=== PATIENT | male | born 1945 | race Caucasian/White ===

== ENCOUNTER 2016-08-02 04:52 | Observation (INO) ==
[2016-08-02] MEDS ORDERED: *HR* Labetalol 20 MG/4 ML SYRINGE IVP ONE (05:07)
--- NOTE | 2016-08-02 05:51 | Emergency Department Note ---
Disposition Clinical Impression: Chest pain, rule out acute myocardial infarction Hypertension Qualifiers: Hypertension type: unspecified secondary hypertension Qualified Code(s): I15.9 - Secondary hypertension, unspecified Disposition: Admitted As Inpatient Condition: Good Referrals: Mack Briones MD [Primary Care Provider] - Forms: ED Satisfaction Letter Time of Disposition: 06:35 Chest Pain HPI - General Chief Complaint: ED Chest Pain Stated Complaint: High Bloodpressure,chest pain, sharlene Time Seen by Provider: 08/02/16 05:46 Source: patient Limitations: no limitations Vital Signs Reviewed: Yes Nursing Notes Reviewed: Yes - History of Present Illness HPI Narrative: 70 year old male with HX of CAD and stent placemtn x1 in 2008. Lanet states that he woke up this morning at 0430 and chest midsternal chest pressure without radiation. Patient states that he has a HX of HTN and high cholesterol. He took his blood pressure and it was 180/100 in addition he began to feel increeasingly dyspneic at rest and decided to come to the ED for further evaluation. Denies diaphoresis, nausea, vomitting. He states he has a 4.2cm abdominal aneurysm however he is not experienecing abdominal pain. Lanet states his shortness of breath started when he woke up this morning after the chest pressure started. Blayne states that he follows with [facility] ad that he most recently had a stress test per Dr. Hopkins which came back normal and stable. He was trying to convince the illustrator set to have a cardiac cath but they are still doing prelim testing before they go to that next step. he is on multiple medications for blood pressure problems. Severity scale (1-10): 5 - Related Data Home Medications Medication Instructions Recorded Confirmed Aspirin Enteric Coated [Aspirin EC] 81 mg PO QAM 01/01/15 03/09/16 Doxazosin [Cardura] 8 mg PO QAM 01/01/15 03/09/16 Metoprolol Succinate 100 mg PO QPM 03/09/16 03/09/16 Ubidecarenone/Vit E Acetate [Co 1 each PO QAM 03/09/16 03/09/16 Q-10 100 mg Softgel] Previous Rx's Medication Instructions Recorded Atorvastatin [Lipitor] 40 mg PO HS #30 tablet 03/10/16 Chlorthalidone 25 mg PO DAILY #30 tablet 03/10/16 Lisinopril [Zestril] 40 mg PO QPM #30 tablet 03/10/16 Amlodipine [Norvasc] 5 mg PO DAILY #14 tablet 06/20/16 Allergies Allergy/AdvReac Type Severity Reaction Status Date / Time losartan Allergy See Verified 08/02/16 04:55 Comments amlodipine [From Norvasc] AdvReac Palpitation Verified 08/02/16 04:56 s most pain medication AdvReac Dizziness Uncoded 01/01/15 10:20 water pills AdvReac See Uncoded 01/28/16 18:11 Comments Constitutional: Denies: fever, chills, weakness, weight change Eyes: Denies: eye pain, eye discharge, vision change ENT ED: Denies: ear pain, throat pain, dental pain, hearing loss, epistaxis, congestion, dysphagia Cardiovascular: Reports: chest pain. Denies: palpitations, dyspnea on exertion , edema, syncope Respiratory: Reports: dyspnea. Denies: cough, wheezes, hemoptysis, stridor Gastrointestinal: Denies: abdominal pain, nausea, vomiting, diarrhea, constipation, hematemesis, melena, hematochezia Genitourinary: Denies: urgency, dysuria, frequency, hematuria Musculoskeletal: Denies: back pain, neck pain, arthralgia, myalgia Integumentary: Denies: rash, abrasion, lesions Neurological: Denies: headache, weakness, numbness, paresthesias, confusion, abnormal gait, vertigo Psychiatric: Denies: anxiety, depression, suicidal thoughts, homicidal thoughts , auditory hallucinations, visual hallucinations Endocrine: Denies: fatigue Hematological/Lymphatic: Denies: easy bleeding, easy bruising Allergic/Immunologic: Denies: facial swelling, urticaria Chest Pain PMH - Past Medical History Medical history: Reports: aortic aneurysm, coronary artery disease, hyperlipidemia, hypertension, myocardial infarction, thyroid disease, other Surgical history: Reports: angioplasty/stent (2008), herniorrhaphy, other ( partial left nephrectomy 08/2014) Psychiatric history: Reports: no psych history - Social History Smoking Status: Former smoker Alcohol use: Reports: none Drug use: Reports: none Physical Exam - General Limitations: no limitations General appearance: alert, in no apparent distress - Head Head exam: atraumatic, normocephalic, normal inspection - Eye Eye exam: Present: normal appearance, PERRL, EOMI - Expanded Eye Exam Pupils: Left: reactive - ENT ENT exam: normal exam, normal oropharynx, mucous membranes moist - Expanded ENT Exam External ear exam: Present: normal external inspection Mouth exam: Present: normal external inspection Teeth exam: Present: normal inspection Throat exam: Present: normal inspection - Neck Neck exam: Present: normal inspection, full ROM, trachea midline - Chest Chest inspection: Present: normal inspection, symmetric chest wall rise - Respiratory Respiratory exam: Present: normal lung sounds bilaterally - Cardiovascular Cardiovascular exam: Present: regular rate, normal rhythm, normal heart sounds - Abdominal Exam Abdominal exam: Present: soft, Non-Tender. Absent: tenderness, distention, guarding, rebound, rigidity - Extremities Exam Extremities exam: Present: normal inspection, full ROM. Absent: tenderness, pedal edema - Expanded Upper Extremity Exam Shoulder exam: Present: normal inspection, full ROM Arm exam: Present: normal inspection, full ROM Elbow exam: Present: normal inspection, full ROM Forearm/Wrist exam: Present: normal inspection, full ROM Hand exam: Present: normal inspection, full ROM Vascular exam: Normal: capillary refill, radial pulse - Expanded Lower Extremity Exam Hip/Pelvis exam: Present: normal inspection, full ROM Upper leg exam: Present: normal inspection, full ROM Knee exam: Present: normal inspection, full ROM Lower leg exam: Present: normal inspection, full ROM Ankle exam: Present: normal inspection, full ROM Foot/toe exam: Present: normal inspection, full ROM Neurovascular/Tendon exam: Absent: motor deficit, sensory deficit, tendon deficit - Back Exam Back exam: Present: normal inspection, full ROM. Absent: tenderness - Neurological Exam Neurological exam: Present: alert, oriented X3 - Expanded Neurological Exam Patient oriented to: Present: person, place, time Coma Scale Eye Opening: Spontaneous Coma Scale Motor Response: Obeys Commands Coma Scale Verbal Response: Oriented Coma Scale Total: 15 - Psychiatric Psychiatric exam: Present: normal affect, normal mood - Skin Skin exam: Present: warm, dry, intact, normal color Course Course Narrative: we will do a chest pain workup on patient and likely admit to medicine fo CP r/ o ACS. - Reevaluation(s) Reevaluation #1: updatd patient on results. WE will consult cards and then admit to medicine Time: 06:33 - Consultations Consultation #1: discussed case with Dr. Cleaning and she agrees patiet needs to be admitted for obs and they can consult cards to discuss need for cardiac cath. Time: 06:34 Consultation #2: discussed case with Dr Kelley and he accepts patint for admission. Time: 06:48 Vital Signs Temperature 98.0 F 08/02/16 04:53 Pulse Rate 79 08/02/16 04:53 Respiratory Rate 19 08/02/16 04:53 Blood Pressure 197/118 08/02/16 04:53 O2 Sat by Pulse Oximetry 96 08/02/16 04:53 Temperature 98.0 F 08/02/16 04:53 Pulse Rate 68 08/02/16 06:11 Respiratory Rate 18 08/02/16 06:11 Blood Pressure 174/101 08/02/16 06:11 O2 Sat by Pulse Oximetry 94 08/02/16 06:11 Oxygen Delivery Oxygen Delivery Room Air Chest Pain - Lab Data Result diagrams: 08/02/16 05:49 08/02/16 05:49 Lab Results 08/02/16 08/02/16 08/02/16 Range/Units 05:24 05:24 05:49 WBC (4.3-11.1) K/mcL RBC (4.19-5.50) M/mcL Hgb (12.9-16.9) g/dL Hct (37.5-50.1) % MCV (83.0-100.0) fL MCH (28.0-33.3) pg MCHC (31.6-35.5) g/dL RDW (11.5-14.5) % Plt Count (140-400) K/mcL MPV (9.4-12.4) fL Immature Gran % (0-4) % Seg Neutrophils % % Lymphocytes % % Monocytes % % Eosinophils % % Basophils % % Neutrophils # (1.6-8.9) K/mcL Lymphocytes # (0.6-4.6) K/mcL Monocytes # (0.0-1.3) K/mcL Eosinophils # (0.0-0.6) K/mcL Basophils # (0.0-0.2) K/mcL Immature Plt Fraction (1.1-6.1) % PT 10.7 (9.4-12.1) Seconds INR 1.0 APTT 28.9 (26.0-36.0) Seconds Sodium (136-145) mEq/L Potassium (3.5-4.5) mEq/L Chloride (98-109) mEq/L Carbon Dioxide (19-29) mEq/L BUN (8-26) mg/dL Creatinine (0.72-1.25) mg/dL Est GFR ( Amer) (> 60) Est GFR (Non-Af Amer) (> 60) BUN/Creatinine Ratio (6-26) Glucose (70-99) mg/dL Calculated Osmolality (280-300) Calcium (8.6-10.8) mg/dL Total Bilirubin (0.2-1.2) mg/dL Direct Bilirubin (0.0-0.5) mg/dL Indirect Bilirubin (0.0-1.2) mg/dL AST (5-34) Units/L ALT (0-55) Units/L Alkaline Phosphatase (38-126) Units/L Troponin I 0.00 (0-0.03) ng/mL B-Natriuretic Peptide (0-100) pg/mL Serum Total Protein (6.0-8.3) g/dL Albumin (3.5-5.0) g/dL Globulin (2.4-3.5) g/dL Albumin/Globulin Ratio (1.1-2.2) Lipase (8-78) Units/L Specimen Rejected Clotted 08/02/16 08/02/16 08/02/16 Range/Units 05:49 05:49 05:49 WBC 6.5 (4.3-11.1) K/mcL RBC 4.92 (4.19-5.50) M/mcL Hgb 14.8 (12.9-16.9) g/dL Hct 44.3 (37.5-50.1) % MCV 90.0 (83.0-100.0) fL MCH 30.1 (28.0-33.3) pg MCHC 33.4 (31.6-35.5) g/dL RDW 12.7 (11.5-14.5) % Plt Count 172 (140-400) K/mcL MPV 9.5 (9.4-12.4) fL Immature Gran % 0.2 (0-4) % Seg Neutrophils % 68.5 % Lymphocytes % 16.6 % Monocytes % 8.8 % Eosinophils % 5.4 % Basophils % 0.5 % Neutrophils # 4.5 (1.6-8.9) K/mcL Lymphocytes # 1.1 (0.6-4.6) K/mcL Monocytes # 0.6 (0.0-1.3) K/mcL Eosinophils # 0.4 (0.0-0.6) K/mcL Basophils # 0.0 (0.0-0.2) K/mcL Immature Plt Fraction 3.4 (1.1-6.1) % PT (9.4-12.1) Seconds INR APTT (26.0-36.0) Seconds Sodium 140 (136-145) mEq/L Potassium 4.1 (3.5-4.5) mEq/L Chloride 105 (98-109) mEq/L Carbon Dioxide 27 (19-29) mEq/L BUN 15 (8-26) mg/dL Creatinine 1.16 (0.72-1.25) mg/dL Est GFR ( Amer) > 60 (> 60) Est GFR (Non-Af Amer) > 60 (> 60) BUN/Creatinine Ratio 13 (6-26) Glucose 127 H (70-99) mg/dL Calculated Osmolality 292 (280-300) Calcium 9.0 (8.6-10.8) mg/dL Total Bilirubin 1.0 (0.2-1.2) mg/dL Direct Bilirubin 0.2 (0.0-0.5) mg/dL Indirect Bilirubin 0.8 (0.0-1.2) mg/dL AST 11 (5-34) Units/L ALT 12 (0-55) Units/L Alkaline Phosphatase 49 (38-126) Units/L Troponin I (0-0.03) ng/mL B-Natriuretic Peptide 57 (0-100) pg/mL Serum Total Protein 6.8 (6.0-8.3) g/dL Albumin 3.6 (3.5-5.0) g/dL Globulin 3.2 (2.4-3.5) g/dL Albumin/Globulin Ratio 1.1 (1.1-2.2) Lipase 15 (8-78) Units/L Specimen Rejected Attestation Statement - Attestation Attestation: I performed a history and physical examination of the patient and discussed their management with the resident. I reviewed the residents note and agree with the documented findings and plan of care. This 70-year-old male presented with chest pain and does have a previous history of coronary artery disease. No recent catheter. His blood pressure was markedly elevated. First troponin is negative. The case was discussed with cardiology and they feel that the patient should be admitted to be ruled out. My resident has arranged hospitalist admission.
[2016-08-02] MEDS ORDERED: Aspirin 81 MG TAB.CHEW PO ONE (05:52)
[2016-08-02 05:57] LABS: Basophils % 0.5 %; Eosinophils # 0.4 K/mcL (0.0-0.6); Eosinophils % 5.4 %; Hematocrit 44.3 % (37.5-50.1); Hemoglobin 14.8 g/dL (12.9-16.9); Immature Granulocytes % 0.2 % (0-4); Immature Platelets 3.4 % (1.1-6.1); Lymphocytes # 1.1 K/mcL (0.6-4.6); Lymphocytes % 16.6 %; Mean Corpuscular HGB Conc 33.4 g/dL (31.6-35.5); Mean Corpuscular Hemoglobin 30.1 pg (28.0-33.3); Mean Platelet Volume 9.5 fL (9.4-12.4); Monocytes # 0.6 K/mcL (0.0-1.3); Monocytes % 8.8 %; Neutrophils # 4.5 K/mcL (1.6-8.9); Platelet Count 172 K/mcL (140-400); Red Blood Count 4.92 M/mcL (4.19-5.50); Red Cell Distribution Width 12.7 % (11.5-14.5); Segmented Neutrophils % 68.5 %
[2016-08-02 06:10] LABS: Alanine Aminotransferase 12 Units/L (0-55); Albumin 3.6 g/dL (3.5-5.0); Albumin/Globulin Ratio 1.1 (1.1-2.2); Alkaline Phosphatase 49 Units/L (38-126); Aspartate Amino Transferase 11 Units/L (5-34); BUN/Creatinine Ratio 13 (6-26); Bilirubin,Direct 0.2 mg/dL (0.0-0.5); Bilirubin,Indirect 0.8 mg/dL (0.0-1.2); Blood Urea Nitrogen 15 mg/dL (8-26); Carbon Dioxide 27 mEq/L (19-29); Chloride 105 mEq/L (98-109); Globulin 3.2 g/dL (2.4-3.5); Glucose 127 mg/dL (70-99); Lipase 15 Units/L (8-78); Osmolality,Calculated 292 (280-300); Potassium 4.1 mEq/L (3.5-4.5); Sodium 140 mEq/L (136-145); Total Protein 6.8 g/dL (6.0-8.3); eGFR For African Americans > 60 (> 60); eGFR For Non-African Americans > 60 (> 60)
[2016-08-02 06:13] LABS: Prothrombin Time 10.7 Seconds (9.4-12.1)
[2016-08-02 06:16] LABS: Activated Partial Thrombo Time 28.9 Seconds (26.0-36.0)
[2016-08-02] MEDS ORDERED: Naloxone 0.4 MG/ML INJ IVP PRN (07:28)
[2016-08-02] MEDS ORDERED: Acetaminophen 325 MG TABLET PO PRN (07:28)
--- NOTE | 2016-08-02 08:27 | Internal Med History&Physical ---
Date of Encounter: 08/02/16 Time of Encounter: 07:50 Assessment and Plan (1) Chest pain Current visit: Yes Status: Acute Acute chest pain. Observation. Trend troponins. Telemetry. Cardiology for further recommendations. Keep nothing by mouth for now. Check lipid profile and A1c. Continue aspirin. Patient is allergic to statins. Qualifiers: Chest pain type: precordial pain Qualified Code(s): R07.2 - Precordial pain (2) HTN (hypertension) Current visit: Yes Status: Chronic Uncontrolled blood pressure. Improving now. Will monitor blood pressure and adjust medications accordingly. Qualifiers: Hypertension type: essential hypertension Qualified Code(s): I10 - Essential (primary) hypertension (3) HLD (hyperlipidemia) Current visit: No Status: Chronic Check lipid profile. Patient is currently not on any statins due to adverse reaction. Qualifiers: Hyperlipidemia type: pure hypercholesterolemia Qualified Code(s): E78.00 - Pure hypercholesterolemia, unspecified; E78.0 - Pure hypercholesterolemia (4) Accelerated essential hypertension Current visit: Yes Status: Acute Blood pressure elevated on presentation. This is improving. We will monitor blood pressure. Use intravenous hydralazine as needed for systolic blood pressure persistently greater than 160. (5) CAD (coronary artery disease) Current visit: No Status: Chronic Continue aspirin, beta brandon and JESSICA inhibitor Qualifiers: Coronary Disease-Associated Artery/Lesion type: [place] artery [place] vs. transplanted heart: [place]jon heart Associated angina: with other forms of angina Qualified Code(s): I25.118 - Atherosclerotic heart disease of [place] coronary artery with other forms of angina pectoris Internal Medicine - H&P: HPI Chief complaint: Chest discomfort and high blood pressure Admitted From: Emergency Dept Plans for Post Hospital Care: Home History of present illness: Mr. Vail is a 70 year old male patient with a history of coronary artery disease, hyperlipidemia, prior non-ST elevation DE and stent, essential hypertension who presented to the ER with complaints of chest discomfort. This has been going on for past several weeks intermittently. He describes the pain as almost like a feeling of indigestion that occurs whenever the patient's blood pressure is high especially the diastolic. He is seeing cardiology as outpatient for this and recently had workup done with a stress test which apparently was negative. He was discussing further options with the assistant vice president including cardiac catheterization. Patient also has a history of abdominal aortic aneurysm. He denies any dizziness lightheadedness palpitations at this time. Denies any abdominal pain. She does get shortness of breath when he has episodes of chest pain. Currently his chest pain has improved. It has no relation to activity. Pain was 5 out of 10 in severity at its worst. Past Med Surg Social Fam HX - Past Medical History Attestation: Yes The following information was validated with the patient. Source: patient Medical history: aortic aneurysm, coronary artery disease, hyperlipidemia, hypertension, myocardial infarction, thyroid disease Psychiatric history: no psych history - Past Surgical History Surgical History: angioplasty/stent (2008), herniorrhaphy, other (partial left nephrectomy 08/2014) - Social History Smoking Status: Former smoker Smokeless Tobacco Status: No Alcohol use: none Drug use: none - Family History Son Living Status: Mother Living Status: Sister Living Status: Internal Medicine - H&P: Meds Aspirin Enteric Coated [Aspirin EC] 81 mg PO QAM 01/01/15 [History] Doxazosin [Cardura] 8 mg PO QAM 01/01/15 [History] Metoprolol Succinate 100 mg PO QPM 03/09/16 [History] Ubidecarenone/Vit E Acetate [Co Q-10 100 mg Softgel] 100 mg PO QAM 03/09/16 [ History] Lisinopril [Zestril] 40 mg PO QPM #30 tablet 03/10/16 [Rx] Allergies losartan Allergy (Verified 08/02/16 04:55) See Comments amlodipine [From Norvasc] Adverse Reaction (Verified 08/02/16 04:56) Palpitations Abxdblu-Hng-Ycd Reductase Inhibitor [Statins] Adverse Reaction (Verified 07:20) Muscle Pain most pain medication Adverse Reaction (Uncoded 01/01/15 10:20) Dizziness water pills Adverse Reaction (Uncoded 01/28/16 18:11) See Comments All Systems PM: A 10-system review of systems was performed and is negative for pertinent findings except as documented above in the HPI. - Constitutional Constitutional: no chills, no fever(s), no night sweats - EENT Eyes: no change in vision, no discharge, no pain, no photophobia Ears: no ear discharge, no ear pain, no tinnitus Nose, mouth and throat: no dysphagia, no nasal discharge, no neck pain, no sore throat - Cardiovascular Cardiovascular ROS IM: chest pain, no diaphoresis, no dyspnea, no lightheadedness, no palpitations, no syncope - Respiratory Respiratory: dyspnea, no cough, no wheezing, no excessive phlegm production - Gastrointestinal Gastrointestinal: no abdominal pain, no diarrhea, no hematemesis, no hematochezia, no melena, no nausea, no vomiting - Musculoskeletal Musculoskeletal ROS IM: no numbness, no tingling - Integumentary Integumentary IM: no rash, no unusual bruising - Neurological Neurological ROS: no confusion, no convulsions, no focal weakness, no numbness, no tingling, no tremor(s) - Hematologic/Lymphatic Hematologic/Lymphatic: no easy bruising - Constitutional Vitals: Temp Pulse Resp BP Pulse Ox 98.7 F 62 14 162/87 95 08/02/16 07:53 08/02/16 07:53 08/02/16 07:53 08/02/16 07:53 08/02/16 07:53 General appearance: Present: cooperative, A&O X 3, answers questions appropriately - Neck Neck exam general surgery: Present: supple, trachea midline. Absent: lymphadenopathy - Respiratory Respiratory exam: Present: CTAB. Absent: accessory muscle use, rales, rhonchi, wheezes - Cardiovascular Cardiovascular exam: Present: RRR, +S1, +S2. Absent: diastolic murmur, gallop, rubs, systolic murmur - GI/Abdominal GI/Abdominal exam: Present: normal bowel sounds, soft, no peritoneal signs. Absent: distended, tenderness - Extremities Exam Extremities exam: Present: warm, radial pulses palpable and symetrical. Absent : calf tenderness, cyanotic, pedal edema - Neurological Exam Neurological exam: Present: alert, CN II-XII intact, oriented X3, no focal deficits. Absent: facial droop, speech deficit - Skin Skin exam: Present: dry, intact Internal Med - H&P Results - Labs CBC & Chem 7: 08/02/16 05:49 08/02/16 05:49 - EKG Data -: EKG Interpreted by Myself EKG shows normal: sinus rhythm - EKG Data EKG comments: 08/02/16 08:29 With old inferior wall Q waves - Impressions Impressions Chest X-Ray 04/27/17 05:07 IMPRESSION: No acute disease D/ / Tylor Sarkar MD / Tylor Sarkar MD Interpreting Provider: Tylor Sarkar MD - Attending Attestation This document has been at least partially created by [employer] recognition technology by Dr. Burnham. Errors in grammar, wording or other phrases may exist. If errors are found after the documentation is signed, they will be addressed individually in the addendum section of this document when appropriate.
[2016-08-02 10:33] LABS: Bilirubin,Urine Negative (Negative); Blood,Urine Negative (Negative); Clarity,Urine Clear (Clear); Color,Urine Yellow (Yellow); Glucose,Urine (UA) Normal (Normal); Ketones,Urine Negative (Negative); Leukocyte Esterase,Urine Negative (Negative); Nitrite,Urine Negative (Negative); PH,Urine 6.5 pH Units (5.0-8.0); Protein,Urine Negative (Neg-Trace); Specific Gravity,Urine 1.026 (1.010-1.025); Urobilinogen,Urine Normal (Normal)
[2016-08-02] MEDS: Aspirin Enteric Coated 81 MG Tablet PO SCH (10:54)
--- NOTE | 2016-08-02 11:12 | Cardiology Consult Note ---
Date of Encounter: 08/02/16 Time of Encounter: 11:08 Assessment and Plan (1) Chest pain Current Visit: Yes Status: Acute New onset of chest pain on waking this AM EKG does not show acute changes Initial troponin is 0.00 Labwork relatively unremarkable CXR normal History of CAD with stent placed in 2008 Nuclear stress in 06/2016 showed fixed defect in inferior/inferolateral wall. Echo on 07/13/16 shows EF of 65% without significant other findings Consider [facility] today Qualifiers: Chest pain type: precordial pain Qualified Code(s): R07.2 - Precordial pain (2) HTN (hypertension) Current Visit: Yes Status: Chronic Variable blood pressures At home takes metoprolol succinate ER 100mg QD, doxazosin 8mg QD, and lisinipril 40 QD Has hydralazine IV ordered for BP control in addition to home meds Qualifiers: Hypertension type: essential hypertension Qualified Code(s): I10 - Essential (primary) hypertension (3) CAD (coronary artery disease) Current Visit: No Status: Chronic Consider left heart cath today Known history of CAD Qualifiers: Coronary Disease-Associated Artery/Lesion type: [place] artery [place] vs. transplanted heart: [place] heart Associated angina: with other forms of angina Qualified Code(s): I25.118 - Atherosclerotic heart disease of [place] coronary artery with other forms of angina pectoris Discussion w patient/family: The assessment and plan as outlined above was discussed with the patient and/or family members who expressed understanding and agreement. All questions were answered. Thank you for involving us in the care of your patient. Please call with any questions. History of Present Illness Consult date: 08/02/16 Consult reason: Chest pain with HTN Chief complaint: Chest pain with prior CAD History of present illness: Mr. Vail is a 70 year old male who presented to the ER this AM at 04:30 due to midsternal CP and dyspnea. He has felt this in the past when his BP becomes elevated. He says when his diastolic is above 100 he begins to get CP. Was recently seen in the cardiology clinic by Dr Richardson (06/2016) due to HTN. He had a nuclear stress in 06/2016 which showed a fixed perfusion defection in the inferior/inferolateral portion. Echo on 07/13/16 showed EF of 65% and no change from prior echos. BP in the ER was 197/118 and his chest pain improved after his BP decreased. Prior cath in 2008 with 1 stent placed. Also hx of AAA and no complaint of abdominal pain or LE symptoms. Adverse reaction to statins in the past with myalgias. 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 Former smoker but quit >10 years ago. Past Med Surg Social Fam HX - Past Medical History Medical history: aortic aneurysm, coronary artery disease, hyperlipidemia, hypertension, myocardial infarction, thyroid disease Psychiatric history: no psych history - Past Surgical History Surgical History: angioplasty/stent, herniorrhaphy, other - Social History Smoking Status: Former smoker Smokeless Tobacco Status: No Alcohol use: none Drug use: none - Family History Son Living Status: Mother Living Status: Sister Living Status: Medications and Allergies Aspirin Enteric Coated [Aspirin EC] 81 mg PO QAM 01/01/15 [History] Doxazosin [Cardura] 8 mg PO QAM 01/01/15 [History] Metoprolol Succinate 100 mg PO QPM 03/09/16 [History] Ubidecarenone/Vit E Acetate [Co Q-10 100 mg Softgel] 100 mg PO QAM 03/09/16 [ History] Lisinopril [Zestril] 40 mg PO QPM #30 tablet 03/10/16 [Rx] Allergies losartan Allergy (Verified 08/02/16 04:55) See Comments amlodipine [From Norvasc] Adverse Reaction (Verified 08/02/16 04:56) Palpitations Tamcwgt-Tus-[place]i Reductase Inhibitor [Statins] Adverse Reaction (Verified 07:20) Muscle Pain most pain medication Adverse Reaction (Uncoded 01/01/15 10:20) Dizziness water pills Adverse Reaction (Uncoded 01/28/16 18:11) See Comments All Systems Review: A 10-system review of systems was performed and is negative for pertinent findings except as documented above in the HPI. - Constitutional Constitutional: no fever(s) - EENT Eyes: no loss of vision - Cardiovascular Cardiovascular: chest pain at rest, dyspnea at rest, no irregular heart rhythm, no palpitations - Respiratory Respiratory: dyspnea, no cough - Musculoskeletal Musculoskeletal: back pain - Integumentary Integumentary: no rash Physical Examination Vital Signs, Last 4 Hours Temp Pulse Resp BP Pulse Ox 08/02/16 07:53 98.7 F 62 14 162/87 95 08/02/16 07:29 14 146/91 General: Conversant HEENT: Atraumatic Neck: No JVD Cardiac: Reg Rate and Rhythm, Normal S1 and S2 Lungs: Normal Breath Sounds Neuro: Alert and responsive Abdomen: Soft Skin: No rashes noted on visualized skin Extremities: No Cyanosis, No Edema, Normal Pulses Results 08/02/16 05:49 08/02/16 05:49 Consult Discharge Plan - Plan Referrals: Mack Briones MD [Primary Care Provider] -
[2016-08-02] MEDS: hydrALAZINE 25 MG TABLET PO SCH (15:59)
--- NOTE | 2016-08-02 16:06 | Pre-Sedation Evaluation ---
Pre-sedation evaluation - Pre-sedation checklist Date of procedure: 08/02/16 Procedure: [facility] Recent Vitals: Last Vital Signs Temp 98.0 F 08/02/16 15:36 Pulse 94 08/02/16 15:36 Resp 16 08/02/16 15:36 BP 172/95 08/02/16 15:36 Pulse Ox 94 08/02/16 15:36 H&P (including ROS) documented in medical record: Yes Previous reaction to sedatives/anesthetics: No Dietary Status: NPO after Midnight Airway Assessment: Patient can open mouth completely, TMJ function normal ASA Classification *see protocol: CLASS II-Mild systemic disease Plan of Care: Pt appropriate candidate for procedure/moderate/conscious sedation , Risks/benefits of procedure/sedation discussed w/ patient/family
[2016-08-02] MEDS ORDERED: Heparin 1,000 UNITS/500 mL NS 500 ML ONE (16:14)
[2016-08-02] MEDS ORDERED: 0.9 % Sodium Chloride 1,000 ML ONE ×2 (16:14→17:05)
[2016-08-02] MEDS ORDERED: *HR* Heparin 10,000 UNIT/10 ML VIAL ONE (16:15)
[2016-08-02] MEDS ORDERED: Nitroglycerin 1,000 MCG/10 ML VIAL IV ONE (16:16)
[2016-08-02] MEDS ORDERED: Verapamil 5 MG/2 ML VIAL ONE (16:16)
[2016-08-02] MEDS ORDERED: *HR* Midazolam HCl 5 MG/5 ML VIAL IVP ONE (17:00)
[2016-08-02] MEDS ORDERED: *HR* FentaNYL (PF) 100 MCG/2 ML VIAL ONE (17:00)
[2016-08-02] MEDS ORDERED: Metoprolol XL (24 HR) Succ 50 MG TAB.ER.24H PO SCH (18:00)
[2016-08-02] MEDS ORDERED: Lisinopril 20 MG TABLET PO SCH (18:00)
--- NOTE | 2016-08-02 18:20 | Invasive Diagnostic Lab Proc ---
Name: Schuyler Vail Date of Study: 08/02/2016 Date: 1945 Ht: 68.1in Medical Record#: [id number] Age: 70 Wt: 266.76lb Gender: Male BSA: 2.31 Order #: [id number] BMI: 40.43 Physicians Procedure Physician: Caesar Villalobos MD, [facility] Referring MD: Referring MD: Staff Name Position Time In [facility], [facility] RT (R) Monitor 05:12 PM Zoran Maria RN Scrub 05:12 PM Paris Ramesh RN Garageman 05:12 PM Anny Benitez RN Garageman 05:12 PM Indications Indication Unstable Angina Procedures Performed Procedure L HRT ARTERY/VENTRICLE ANGIO Pre-Procedure Checklist Informed consent is complete signed and on chart. H\\T\\P is on chart. ID band is on and ID verified with patient. Patient NPO for procedure The procedure was described for the patient and questions were answered. Blood Pressure: 153/84 ECG is on chart. Rhythm: NSR Plan of Care Patient will tolerate the procedure without complications. Adequate level of comfort will be maintained. Hemodynamics will remain stable Patient will recover from procedure without complications. Respiratory function will be maintained. Cardiac rhythm will remain stable. Patient temperature will be maintained. Patient and/or family have verbalized understanding of the procedure. Patient Education Intravenous Access Time IV Size Location DC'd Fluid/Drip Rate Units RN 20g 1 /" Patent On Arrival Rt Antecubital 0.9NaCl 20 ml/hr Paris Ramesh RN Allergies amlodipine Xjqqgyr-Sav-Qbn Reductase Inhibitor JESSICA Inhibitor lisinopril losartan Vital Signs Time BP (mmHg) HR (bpm) O2 Sat. RR (bpm) LOC 181 / 98 61 94 % 16 5 = Fully awake and oriented or at pre-proc level 05:14 PM / % 5 = Fully awake and oriented or at pre-proc level 05:03 PM 179 / 88 73 99 % 7 05:08 PM 153 / 84 73 98 % 16 05:12 PM 141 / 81 76 97 % 26 05:17 PM 152 / 91 75 97 % 18 05:22 PM 161 / 88 67 98 % 19 05:27 PM 116 / 60 80 95 % 10 05:32 PM 127 / 67 73 96 % 23 05:37 PM 134 / 70 78 97 % 18 05:43 PM 152 / 80 69 98 % 17 05:47 PM 140 / 79 68 98 % 21 05:52 PM 135 / 68 69 98 % 17 05:57 PM 144 / 76 73 97 % 17 Procedural Medications Time Medication Dose Units Method Given By 05:14 PM Oxygen 2 L/min nasal cannula Prais Ramesh RN 05:14 PM Versed 3 mg Intravenous Paris Ramesh RN 05:14 PM Fentanyl 50 mcg Intravenous Paris Ramesh RN 05:22 PM Versed 1 mg Intravenous Anny Benitez RN 05:22 PM Fentanyl 25 mcg Intravenous Anny Benitez RN 05:23 PM Lidocaine 2% 0.5 ml Subcutaneous Caesar Villalobos MD, FAC 05:24 PM Heparin 4000 units Nitroglycerin 200 mcg Verapamil 2.5 mg Intraarterial Caesar Villalobos MD, FACC 05:44 PM Lidocaine 2% 20 ml Subcutaneous Caesar Villalobos MD, FACC 06:08 PM Hydralazine 10 mg Intravenous Paris Ramesh RN ASA Classification: CLASS II- Mild systemic disease (i.e. well-controlled diabetes, hypertension, asthma, cigarette smoking) Rosio Score Preprocedure Postprocedure Activity 2- Moves 4 extremities sustained head lift Activity 2- Moves 4 extremities sustained head lift Circulation 2- SBP +/= 20 points of pre-anesthetic level Circulation 2- SBP +/= 20 points of pre-anesthetic level Consciousness 2- Awake and alert oriented x 3 Consciousness 2- Awake and alert oriented x 3 O2 Saturation 2- Able to maintain O2 satruation of 92% on room air O2 Saturation 2- Able to maintain O2 satruation of 92% on room air Respiratory 2- Able to deep breathe and cough well Respiratory 2- Able to deep breathe and cough well Total Score 10 Total Score 10 Contrast Agent: Isovue Diagnostic Contrast: 95 ml Total Contrast: 95 ml Fluoro Dose: 893 mGy Procedure Log Time Note Enter By 04:45 PM CathStat 05:01 PM Vitals capture started with the following parameters, Patient=Adult, Interval=5 min, Initial Shytrfxo=557 mmHg, Deflation Rate=5 mmHg, Cuff placed on Left Arm 05:03 PM HR=73 bpm, ACSD=787/88 mmhg, SpO2=99 %, Resp=7 B/min 05:08 PM HR=73 bpm, RBWQ=727/84 mmhg, SpO2=98 %, Resp=16 B/min 05:12 PM HR=76 bpm, SJCM=276/81 mmhg, SpO2=97 %, Resp=26 B/min 05:12 PM Pt arrived [facility] clinical genetics [facility] chief [facility] 05:12 PM Garret, Estefany RT (R) Position: Monitor Time in: 17:12 [facility] 05:12 PM Zoran Maria RN Position: Scrub Time in: 17:12 cata 05:12 PM Paris Ramesh RN Position: Garageman Time in: 17:12 [facility] 05:13 PM Anny Benitez RN Position: Garageman Time in: 17:12 [facility] 05:13 PM Patient charges- Angio tray pack, Navilyst 3mm J, Pulse Oximetry and ACIST tubing and transducer [facility] 05:13 PM Case Delayed [facility] 05:13 PM Physician arrived 17:13 [facility] 05:13 PM Meet and greet completed [facility] 05:13 PM Sign in performed according to hospital policy. [facility] 05:13 PM Procedure start 17:13 [facility] 05[facility] PM Hair removed from procedure site in holding area using clippers. Right wrist and right groin prepped with Chloraprep by Paris Ramesh RN, safety strap applied then patient was draped. Skin intact. [facility] 05:14 PM Time: 17:14 Oxygen on at 2 L/min per nasal cannula by Paris Ramesh RN 05:14 PM Time: 17:14 Versed 3 mg Intravenous Given by Paris Ramesh RN 05:14 PM Pressure channel 1 zeroed. 05:14 PM Time: 17:14 Fentanyl 50 mcg Intravenous Given by Paris Ramesh RN 05:14 PM Recorded ECG: HR=75 Condition=Condition 1 05:14 PM Time: 17:14 Patient comfortable and pain free: Yes [facility] 05[facility]14 PM Time: 17:14LOC: 5 = Fully awake and oriented or at pre-proc level [facility] 05:14 PM Clinical Presentation: Unstable angina [facility] 05:17 PM HR=75 bpm, GICV=136/91 mmhg, SpO2=97.0 %, Resp=18 B/min 05:22 PM HR=67 bpm, EPZY=609/88 mmhg, SpO2=98.0 %, Resp=19 B/min 05:22 PM Time: 17:22 Versed 1 mg Intravenous Given by Anny Benitez RN tsites 05:22 PM Time: 17:22 Fentanyl 25 mcg Intravenous Given by Anny Benitez RN tsites 05:23 PM Time: 17:23 0.5 ml Lidocaine 2% to right radial Subcutaneous Given by Caesar Villalobos MD, [facility] tsites 05:24 PM Access obtained by percutaneous puncture. 5Fr 10cm Terumo Glidesheath sheath placed in right Radial artery. [id number] tsites 05:25 PM Time: 17:24 Patient given 4,000 units Heparin, 200 mcg Nitroglycerin, and 2.5 mg Verapamil Intraarterial by Caesar Villalobos MD, [facility] tsites 05:25 PM 5Fr FR 4 catheter inserted over the wire [facility] tsites 05:25 PM 0.035 260cm Navilyst 3mmJ wire [id number] tsites 05:25 PM Wire removed tsites 05:25 PM 0.035 145cm VSI Pieter-Torque wire [id number] tsites 05:26 PM Wire removed tsites 05:27 PM HR=80 bpm, SZET=100/60 mmhg, SpO2=95.0 %, Resp=10 B/min 05:27 PM jwire reinserted tsites 05:30 PM 6Fr IM catheter inserted over the wire [id number] tsites 05:31 PM Wire removed tsites 05:32 PM RCA angiography performed in multiple views. tsites 05:32 PM Recorded Pressure: Ao, HR=73, Condition=Condition 1 (Aorta) Ao 106/70/86 05:32 PM wire reinserted catheter removed tsites 05:32 PM HR=73 bpm, QGCO=963/67 mmhg, SpO2=96.0 %, Resp=23 B/min 05:33 PM 6Fr FL4 catheter inserted over the wire [id number] tsites 05:37 PM 0.035 260cm Amplatz Super Stiff wire [id number] tsites 05:37 PM HR=78 bpm, UCKQ=318/70 mmhg, SpO2=97.0 %, Resp=18 B/min 05:37 PM Wire removed tsites 05:38 PM 0.035 260cm Wholey wire [id number] tsites 05:39 PM Wire removed tsites 05:39 PM Catheter removed tsites 05:39 PM 6FR. IM diagnostic catheter reinserted tsites 05:40 PM Wire removed tsites 05:41 PM Amplatz wire reinserted tsites 05:42 PM Catheter removed tsites 05:42 PM 6 Fr. FL4 reinserted tsites 05:43 PM HR=69 bpm, MMOU=162/80 mmhg, SpO2=98.0 %, Resp=17 B/min 05:43 PM Catheter removed tsites 05:43 PM Wire removed tsites 05:45 PM Time: 17:44 20 ml Lidocaine 2% to right groin Subcutaneous Given by Caesar Villalobos MD, [facility] tsites 05:47 PM Access obtained by percutaneous puncture. 5Fr 10cm Terumo [place] sheath placed in right Femoral artery. [id number] tsites 05:47 PM 5Fr FL3.5 catheter inserted over the wire [id number] tsites 05:47 PM 0.035 145cm Navilyst 3mmJ wire [id number] tsites 05:47 PM HR=68 bpm, WUDJ=994/79 mmhg, SpO2=98.0 %, Resp=21 B/min 05:50 PM Bolus angiogram of right Femoral complete: 2 ml/sec for a total of 4 mls tsites 05:51 PM Recorded Pressure: Ao, HR=79, Condition=Condition 1 (Aorta) Ao 138/83/108 05:51 PM LCA angiography performed in multiple views. tsites 05:52 PM HR=69 bpm, WIBV=483/68 mmhg, SpO2=98.0 %, Resp=17 B/min 05:53 PM Recorded Pressure: Ao, HR=67, Condition=Condition 1 (Aorta) Ao 127/76/100 05:55 PM Catheter removed tsites 05:56 PM Recorded Pressure: LV, HR=71, Condition=Condition 1 (Left Ventricle) LV 136/4/15 05:56 PM 5Fr Pigtail catheter inserted over the wire [facility] tsites 05:56 PM Catheter selectively placed in left ventricle tsites 05:56 PM Bolus angiogram of left Ventricle complete: 10 ml/sec for a total of 30 mls tsites 05:56 PM Recorded Pressure: LV, Ao, HR=69, Condition=Condition 1 (Left Ventricle) LV 158/8/25, (Aorta) Ao 149/73/106 05:57 PM HR=73 bpm, RRJZ=366/76 mmhg, SpO2=97 %, Resp=17 B/min 05:57 PM Bolus angiogram of right Femoral complete: 2 ml/sec for a total of 4 mls tsites 05:57 PM Procedure completed at 17:57 tsites 05:58 PM Sign out completed: Radiation Dose 893 mGy Fluoro Time: 10.4 Isovue 370 - 200ml contrast 94.8 ml given by Caesar Villalobos MD, [facility]. Complications: NoneCardiac Rehab Consult needed: NoConfirmed administered medications: Yes tsites 05:58 PM Isovue 370 - 200ml,1 Bottle(s) used. tsites 06:00 PM Arterial sheath pulled, Mynx closure device used and was Successful S/N. tsites 06:01 PM Post Blood Pressure 144/76 tsites 06:01 PM 18:01 Post Pulses Rt Radial 2+ tsites 06:01 PM 18:01 Post Pulses Bilateral DP \\T\\ PT 1+ tsites 06:01 PM Information taught Cardiac Cath, Mynx, and Vasc Band tsites 06:01 PM Education needs Procedure, Plan of Care, and Responsibilities of Patient in Care tsites 06:01 PM Learning barriers :None tsites 06:01 PM Education Methods Verbal tsites 06:01 PM Education evaluation Able to repeat information tsites 06:01 PM Site status No bleeding/hematoma - Rt Groin as reported by Selene Castro RT at 18:01 tsites 06:01 PM Site status No bleeding/hematoma - Rt Wrist as reported by Selene Castro RT at 18:01 tsites 06:02 PM 10 ml air in Vasc Band. tsites 06:06 PM Coronary Dominance: right tsites 06:06 PM Lesion found in Proximal RCA. Pre Stenosis: 30 Pre CURTIS Flow: tsites 06:06 PM Lesion found in Proximal LAD. Pre Stenosis: 20 Pre CURTIS Flow: tsites 06:07 PM Lesion found in Mid LAD. Pre Stenosis: 30 Pre CURTIS Flow: tsites 06:07 PM Lesion found in 1st Diagonal. Pre Stenosis: 65 Pre CURTIS Flow: tsites 06:07 PM Lesion found in Mid Circumflex. Pre Stenosis: 50 Pre CURTIS Flow: tsites 06:07 PM Lesion found in 1st Marginal. Pre Stenosis: 50 Pre CURTIS Flow: tsites 06:07 PM Proximal Left Anterior Descending Coronary Artery with 20% stenosis. If graft is supplying this territory, 0 % stenosis. tsites 06:07 PM Mid/Distal Left Anterior Descending Coronary Artery and diagonal branches with 65% stenosis. If graft is supplying this area, 0 % stenosis tsites 06:07 PM Circumflex, Obtuse Marginal, Left Posterior Descending, and Left Posterolateral Coronary Arteries with 50 % stenosis. If graft is supplying this area, 0 % stenosis tsites 06:07 PM Right Coronary, Right Posterior Descending Arteries with Right Posterolateral and Acute Marginal branches with 30 % stenosis. If graft is supplying this area, 0 % stenosis tsites 06:09 PM Time: 18:08 Hydralazine 10 mg Intravenous Given by Paris Ramesh RN tsites 06:12 PM Report given to chaim JOHNSON Pt taken to Room #55. 18:11 tsites 06:12 PM Delay to floor No tsites 06:12 PM Patient out of room: 18:12 tsites Complications Complication None Hemodynamics Pressures Site Systolic/A Wave Diastolic/V Wave Mean AO 106 70 86 AO 138 83 108 AO 127 76 100 LV 136 4 15 LV 158 8 25 AO 149 73 106 Post Procedure Information Blood Pressure: 144/76 mmHg Post procedural instructions were given Closure Device Time Device Success/Fail 08/02/2016 6:06:00 PM MynxGrip Successful Site Checks Time Location Status Staff Sheath In? Note 06:01 PM Rt Groin No bleeding/hematoma Selene Castro RT No 06:01 PM Rt Wrist No bleeding/hematoma Selene Castro RT No Pulses Time Site Pre-Procedure Post-Procedure Note Bilateral DP \\T\\ PT 2+ Bilateral radial 2+ 6:01:00 PM Rt Radial 2+ 6:01:00 PM Bilateral DP \\T\\ PT 1+ Updated by Estefany Combs RT (R) on 08/02/2016 6:13:07 PM Estefany Combs RT electronically signed on 08/02/2016 6:13:38 PM with status of Final
[2016-08-02] MEDS ORDERED: Nitroglycerin 0.4 MG TAB.SUBL SL PRN (19:33)
[2016-08-02] MEDS ORDERED: Nitroglycerin 0.4 MG TAB.SUBL SL ONE (19:35)
--- NOTE | 2016-08-02 19:41 | Electrocardiograph Report ---
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
[2016-08-02] MEDS ORDERED: rOPINIRole 0.25 MG TABLET PO ONE (21:53)
[2016-08-03] MEDS: hydrALAZINE 25 MG TABLET PO SCH ×2 (00:59→08:46)
[2016-08-03 06:30] LABS: Chol/HDL Ratio 7.3 (0-4.9)
[2016-08-03] MEDS: Aspirin Enteric Coated 81 MG Tablet PO SCH (08:46)
--- NOTE | 2016-08-03 10:21 | Cardiology Progress Note ---
Date of Encounter: 08/03/16 Time of Encounter: 10:19 Assessment and Plan (1) Chest pain Current Visit: Yes Status: Acute New onset of chest pain on waking yesterday AM EKG does not show acute changes Initial troponin is 0.00, 0.01, 0.00 Labwork relatively unremarkable CXR normal History of CAD with stent placed in 2008 Nuclear stress in 06/2016 showed fixed defect in inferior/inferolateral wall. Echo on 07/13/16 shows EF of 65% without significant other findings LHC performed yesterday without lesions needing stenting Cardiology is signing off. Please call with any questions. Qualifiers: Chest pain type: precordial pain Qualified Code(s): R07.2 - Precordial pain (2) HTN (hypertension) Current Visit: Yes Status: Chronic Variable blood pressures At home takes metoprolol succinate ER 100mg QD, doxazosin 8mg QD, and lisinipril 40 QD Started PO hydralazine and has had improved BP's Recommend going home on PO hydralazine Qualifiers: Hypertension type: essential hypertension Qualified Code(s): I10 - Essential (primary) hypertension (3) CAD (coronary artery disease) Current Visit: No Status: Chronic Known history of CAD with stents Qualifiers: Coronary Disease-Associated Artery/Lesion type: [place] artery [place] vs. transplanted heart: [place] heart Associated angina: with other forms of angina Qualified Code(s): I25.118 - Atherosclerotic heart disease of [place] coronary artery with other forms of angina pectoris Discussion w patient/family: The assessment and plan as outlined above was discussed with the patient and/or family members who expressed understanding and agreement. All questions were answered. Thank you for involving us in the care of your patient. Please call with any questions. Subjective Interval history: LHC was performed yesterday. No lesions needing stents. PO hydralazine was started yesterday and his BP has improved since that time. He denies having any chest pain since his LHC. No dyspnea. States he feels well and would like to go home. Objective Vital Signs, Last 4 Hours Temp Pulse Resp BP Pulse Ox 08/03/16 08:00 94 08/03/16 07:35 98.1 F 63 16 151/79 94 General: Conversant HEENT: Atraumatic Neck: No JVD Cardiac: Reg Rate and Rhythm Lungs: Normal Breath Sounds Neuro: Alert and responsive Abdomen: Soft Skin: No rashes noted on visualized skin Extremities: No Edema, Normal Pulses Results 08/02/16 05:49 08/02/16 05:49 Lab Results 08/02/16 08/02/16 11:09 19:46 Troponin I 0.01 0.00 Consult Discharge Plan - Plan Referrals: Mack Briones MD [Primary Care Provider] - 08/10/16 10:15 am
--- NOTE | 2016-08-03 11:03 | Invasive Diagnostic Lab ---
Name: Schuyler Vail Date of Study: 08/02/2016 Date: 1945 Ht: 173.0 cm /68.1 in Medical Record#: [id number] Age: 70 Wt: 121. kg / 266.76 lb Account/Order#: [id number] Gender: Male BSA: 2.31 Order #: [id number] Fluoro Dose: 893 mGy BMI: 40.43 Procedure Physician: Caesar Villalobos MD, FACC Referring MD: Referring MD: Procedures Performed: LEFT HEART CATH Indications: Unstable Angina Impressions: Moderate coronary artery disease. The left ventricle is normal and has normal contractility EF 65% Tortuous right subclavian Recommendations: Optimal medical therapy of patient's disease. Aggressive risk factor modification. History/Risk Factors: Hypertension Dyslipidemia Prior [place] Procedure Access obtained in the right Femoral artery by percutaneous puncture after inability to pass left coronary catheter into aortic root with use of Superstiff and Wholey wires. Complications: None Contrast: Isovue 95ml Closure Device: MynxGrip Hemodynamics: Pressures Site Systolic/ A Wave Diastolic/ V Wave End Diastolic/ Mean HR AO 106 70 86 73 AO 138 83 108 79 AO 127 76 100 67 LV 136 4 15 71 LV 158 8 25 69 AO 149 73 106 69 LV Ventriculography Ejection Method: LV Gram Ejection Fraction: 65% Wall Motion: HITCHCOCK Anterobasal Normal Anterolateral Normal Apical: Normal Inferoapical Normal Inferobasal Normal Coronary Dominance: right Lesion Findings/Interventions * Left Main Coronary Artery The LMCA is angiographically free of disease. * Left Anterior Descending There is a 20% stenosis in the Proximal LAD. There is a 30% stenosis in the Mid LAD. There is a 50-60% stenosis in the 1st Diagonal. * Circumflex There is a 50% stenosis in the Mid Circumflex. There is a 50% stenosis in the 1st Marginal. * Right Coronary Artery There is a 30% stenosis in the Proximal RCA. Updated by Estefany Combs RT (R) on 08/02/2016 6:13:45 PM Caesar Villalobos MD, FACC electronically signed on 08/03/2016 10:59:34 AM with status of Final
[2016-08-03 11:58] VITALS: BP 135/70
--- NOTE | 2016-08-03 13:45 | Discharge Summary ---
Date of Encounter: 08/03/16 Time of Encounter: 10:20 - Discharge Diagnosis (1) Chest pain Priority: Primary Status: Acute Comments: Patient reports awakening with chest pain yesterday morning. Onset at 04 30 while he was sleeping. He describes it as midsternal chest pressure with no radiation, he denies nausea, vomiting, any short of breath or diaphoresis. He says that he took his blood pressure was elevated at home and he began to feel short of breath and decided come to the emergency room. Patient had a heart catheter yesterday. Showed moderate coronary artery disease , EF 65%, torturous right subclavian. Cardiology recommends are optimal medical therapy of patient's disease, and aggressive risk factor modification. EKG did not show any acute ischemic changes. Troponins were negative 3. Chest x-ray was negative for any acute cardiopulmonary process. Patient had a stent placed in 2008. Echocardiogram earlier this month shows EF of 65% without any other significant findings. Cardiology has signed off. Qualifiers: Chest pain type: precordial pain Qualified Code(s): R07.2 - Precordial pain (2) CAD (coronary artery disease) Priority: Secondary Status: Chronic Comments: Chronic. Patient has stents. Continue home medications. Patient will follow up with primary care physician and cardiology as needed. Qualifiers: Coronary Disease-Associated Artery/Lesion type: [place] artery [place] vs. transplanted heart: [place] heart Associated angina: with other forms of angina Qualified Code(s): I25.118 - Atherosclerotic heart disease of [place] coronary artery with other forms of angina pectoris (3) Accelerated essential hypertension Priority: Secondary Status: Chronic Comments: Patient has been hypertensive since arrival. He was hypertensive with initial reading at home. This morning both systolic and diastolic were within parameters. Continue home medications. Follow-up with primary care or cardiology. (4) HTN (hypertension) Priority: Secondary Status: Chronic Comments: Plan as above Qualifiers: Hypertension type: essential hypertension Qualified Code(s): I10 - Essential (primary) hypertension (5) HLD (hyperlipidemia) Priority: Secondary Status: Chronic Comments: Cholesterol, LDL, triglycerides all elevated. Chronic. Patient declines a statin or any other cholesterol medication. He says that when he took a statin before he could not walk. Patient states that he has fish oil at home, he is certainly mixed reviews and does not take it. After lengthy discussion and education, patient states that he is 70 years old and has lived most of his life without a statin and will be fine. Qualifiers: Hyperlipidemia type: pure hypercholesterolemia Qualified Code(s): E78.00 - Pure hypercholesterolemia, unspecified; E78.0 - Pure hypercholesterolemia - Discharge Medications Home Medications: Aspirin Enteric Coated [Aspirin EC] 81 mg PO QAM 01/01/15 [History] Doxazosin [Cardura] 8 mg PO QAM 01/01/15 [History] Metoprolol Succinate 100 mg PO QPM 03/09/16 [History] Ubidecarenone/Vit E Acetate [Co Q-10 100 mg Softgel] 100 mg PO QAM 03/09/16 [ History] Lisinopril [Zestril] 40 mg PO QPM #30 tablet 03/10/16 [Rx] Allergies/Adverse Reactions: Allergies losartan Allergy (Verified 08/02/16 04:55) See Comments amlodipine [From Norvas] Adverse Reaction (Verified 08/02/16 04:56) Palpitations Focfnbt-Izt-Fsp Reductase Inhibitor [Statins] Adverse Reaction (Verified 07:20) Muscle Pain most pain medication Adverse Reaction (Uncoded 01/01/15 10:20) Dizziness water pills Adverse Reaction (Uncoded 01/28/16 18:11) See Comments Procedures/tests Complete & Pending: Procedures Performed prior 72 hours Category Date Time Status Left Heart Cath [CL Cardiac Catheterization] [CL] Acetone Button Paster 08/02/16 11:44 Completed Routine Date of admission: 08/02/16 07:01 Primary care physician: Mack Briones MD Discharging clinician: Janell Parham Anticipated date of discharge: 08/03/16 - Patient Status Disposition: Home, Self-Care Functional capacity at discharge: independent ambulation Overall status at discharge: patient is back to baseline - Discharge Instructions Instructions: Left Heart Catheterization (DC) Follow Up With: Mack Briones MD [Primary Care Provider] - 08/10/16 10:15 am Shine Hopkins DO [Partnered Physician] - 08/20/16 1:00 pm Additional Instructions: Follow up with cardiology and your family doctor as scheduled or needed. REturn to the ER for any other problems or concerns or if your condition changes. Take your home medications as you normally would. - Diet and Activity Activity: resume usual activities as tolerated Diet: low fat, low cholesterol, low salt diet Interval History: Mr. Vail is a 70-year-old female with a past medical history of chest pain, or lipidemia, hypertension, coronary artery disease with stent placement in 2008 , and NSTEMI. He presented to the emergency department yesterday with complaints of chest discomfort. His been going on intermittently for the past several weeks. He says it almost feels as if he has indigestion and it occurs when his blood pressure is high. It awakened him from sleep at about 0400. Patient is already seeing cardiology outpatient for this chest pain and had a recent stress test and workup which was negative. Patient had a heart catheter yesterday that showed moderate coronary artery disease, EF 65%, and a tortuous right subclavian. Stress test last month showed fixed defect in the inferior/ inferolateral wall. Echo in July 2016 shows EF of 65% without significant other findings. His troponins were negative 3. EKG did not show any new ischemic changes. Patient is completely pain-free this morning. He will continue his beta brandon and aspirin at home. Patient's blood pressure has been controlled. He will continue his metoprolol, doxazosin, and lisinopril, and add by mouth hydralazine. His blood pressures have been within acceptable range. Patients triglycerides, cholesterol, HDL, all elevated. Patient states that he took a statin before and that he could not walk after taking it. He says that he does not wish to take any kind of cholesterol medication. He does have fish oil at home but states he does not take it because he is her mixed reviews about its efficacy. He says he takes a co-Q10 every day that seems to help him feel better. He did say that he is 70 years old and has lived all this time without a statin and he will be fine. Patient is alert and oriented, labs are within normal limits, as are vital signs. Patient has been cleared by cardiology. Patient is appropriate and stable for discharge. Hospital course: Mr. Vail is a 70 year old male - Time Spent with Patient Total time spent providing and/or coordinating discharge services: - Constitutional Vitals: Temp Pulse Resp BP Pulse Ox 98.1 F 65 16 135/70 95 08/03/16 11:56 08/03/16 11:56 08/03/16 11:56 08/03/16 11:56 08/03/16 11:56 General appearance: Present: cooperative, A&O X 3, morbidly obese, pleasant, no acute distress, answers questions appropriately - Head Head exam: Present: normal inspection - Eye Eye exam: Present: normal appearance, conjuntiva pink - ENT ENT exam: Present: mucous membranes moist, normal exam, normal external ear exam - Neck Neck exam general surgery: Present: normal inspection. Absent: lymphadenopathy , tenderness - Respiratory Respiratory exam: Present: CTAB. Absent: rales, respiratory distress, rhonchi, stridor, wheezes, tachypnea - Cardiovascular Cardiovascular exam: Present: RRR, +S1, +S2 - GI/Abdominal GI/Abdominal exam: Present: distended, normal bowel sounds, soft. Absent: firm , hepatomegaly, pulsatile mass, tenderness - Extremities Exam Extremities exam: Present: normal capillary refill, normal inspection, warm, radial pulses palpable and symetrical. Absent: pedal edema, tenderness - Neurological Exam Neurological exam: Present: alert, oriented X3, no focal deficits, strengths equal and symetr throughout. Absent: facial droop, speech deficit
== END 2016-08-03 14:32 | disposition home or self-care (01) ==
LOC: EMEROO 04:52 → 3BNU 04:52
PROVIDERS: ADMIT Registered Nurse; ATTEND Registered Nurse

== ENCOUNTER 2017-07-15 12:23 | Inpatient (IN) ==
[2017-07-15] MEDS ORDERED: Aspirin 81 MG TAB.CHEW PO STA (12:50)
--- NOTE | 2017-07-15 12:51 | Emergency Department Note ---
Disposition Clinical Impression: Abdominal aneurysm Chest pain Qualifiers: Chest pain type: unspecified Qualified Code(s): R07.9 - Chest pain, unspecified Disposition: Admitted As Inpatient Condition: Good Referrals: aMck Briones MD [Primary Care Provider] - Forms: ED Satisfaction Letter Time of Disposition: 15:52 General Adult HPI - General Chief complaint: ED Chest Pain Stated complaint: CP Time Seen by Provider: 07/15/17 12:32 Source: patient Limitations: no limitations Nursing Notes Reviewed: Yes Vital Signs Reviewed: Yes - History of Present Illness HPI Narrative: Chest pain that started an hour and half prior to arrival here. Was sitting in his chair whenever it started. Complaining of pain and numbness to the left arm as well as up to left face. Associated shortness of breath. Has resolved at this time. Did take 2 baby aspirin prior to arrival. No nausea or vomiting. States it feels like his previous RI in 2008. Pain Scale: 2 - Related Data Home Medications Medication Instructions Recorded Confirmed Aspirin Enteric Coated [Aspirin EC] 81 mg PO QAM 01/01/15 06/14/17 Metoprolol Succinate 100 mg PO QPM 03/09/16 06/14/17 hydroCHLOROthiazide 25 mg PO DAILY 12/27/16 06/14/17 [Hydrochlorothiazide] Cyanocobalamin (Vitamin B-12) 1,000 mcg PO QAM 07/15/17 07/15/17 [Vitamin B12] Doxazosin Mesylate [Cardura] 8 mg PO QPM 07/15/17 07/15/17 Lisinopril [Zestril] 40 mg PO QAM 07/15/17 07/15/17 Ubidecarenone [Co Q-10] 200 mg PO QAM 07/15/17 07/15/17 Allergies Allergy/AdvReac Type Severity Reaction Status Date / Time losartan Allergy See Verified 06/14/17 15:15 Comments amlodipine [From Norvasc] AdvReac Palpitation Verified 06/14/17 15:15 s Dpinffu-Suv-Pew Reductase AdvReac Muscle Pain Verified 06/14/17 15:15 Inhibitor [Statins] most pain medication AdvReac Dizziness Uncoded 06/14/17 15:15 water pills AdvReac See Uncoded 06/14/17 15:15 Comments All systems ED: reviewed and negative except as stated. Constitutional: Denies: fever, chills ENT ED: Denies: congestion Cardiovascular: Reports: chest pain Respiratory: Reports: dyspnea. Denies: cough Gastrointestinal: Denies: abdominal pain, nausea, vomiting, diarrhea, other Genitourinary: Denies: urgency, dysuria, frequency Musculoskeletal: Denies: back pain Neurological: Denies: weakness Past Medical History - Past Medical History Attestation: Yes The following information was validated with the patient. Source: patient Medical history: Reports: aortic aneurysm, coronary artery disease, hyperlipidemia, hypertension, myocardial infarction, thyroid disease Surgical history: Reports: angioplasty/stent, herniorrhaphy, other Psychiatric history: Reports: no psych history - Social History Smoking Status: Former smoker Smokeless Tobacco Status: No Alcohol use: Reports: none Drug use: Reports: none Physical Exam - General Limitations: no limitations General appearance: alert, in no apparent distress - Head Head exam: atraumatic, normocephalic, normal inspection - Eye Eye exam: Present: normal appearance, PERRL, EOMI - ENT ENT exam: normal exam, normal oropharynx, mucous membranes moist - Neck Neck exam: Present: normal inspection, full ROM, trachea midline - Chest Chest inspection: Present: normal inspection, symmetric chest wall rise - Respiratory Respiratory exam: Present: normal lung sounds bilaterally. Absent: respiratory distress, accessory muscle use - Cardiovascular Cardiovascular exam: Present: regular rate, normal rhythm, normal heart sounds - Abdominal Exam Abdominal exam: Present: soft, Non-Tender. Absent: organomegaly - Extremities Exam Extremities exam: Present: normal inspection, normal capillary refill - Neurological Exam Neurological exam: Present: alert, oriented X3 - Psychiatric Psychiatric exam: Present: normal affect, normal mood - Skin Skin exam: Present: warm, dry, intact, normal color. Absent: rash, cyanosis, diaphoresis Course Course Narrative: Patient presenting to the emergency department complaining of chest pain. States it was on the left side of his chest. States it started while he was sitting in his recliner earlier today. Has had a history of an RI with stent placed in 2008. States it felt similar. He did have associated shortness of breath with it. The pain is resolved at this time. He did take 2 baby aspirin prior to arrival and we will give him 2 more while he is here. He is currently asymptomatic. His lung sounds are clear heart tones are normal abdomen is soft and nontender. Patient states he does have a history of an abdominal aortic aneurysm. He initially complained of back pain to triage however he denies this at this time. Bedside ultrasound showed no increase in size of his aneurysm. There has been also discussion about a possible thoracic aneurysm. We are unaware if this exists or not. Due to patient's chest pain and shortness of breath we will get a CTA of patient's chest and abdomen. Is also known that he has a mass in his abdomen connected to one of his kidneys. He is aware of this. His abdomen is soft and nontender on palpation. I cannot palpate a pulsating mass. He has no signs of edema to his extremities. We will do a basic lab workup get a chest x-ray and a CTA patient's chest and abdomen. I anticipate admission for patient's chest pain and his elevated heart score due to his previous coronary artery disease as well as age. - Consultations Consultation #1: Dr Subramanian accepted Pt in stable condition. Time: 15:14 Vital Signs Temperature 98.0 F 07/15/17 12:27 Pulse Rate 94 07/15/17 12:27 Respiratory Rate 18 07/15/17 12:27 Blood Pressure 179/118 07/15/17 12:27 O2 Sat by Pulse Oximetry 96 07/15/17 12:27 Temperature 98.0 F 07/15/17 12:27 Pulse Rate 80 07/15/17 14:13 Respiratory Rate 18 07/15/17 14:13 Blood Pressure 143/87 07/15/17 14:13 O2 Sat by Pulse Oximetry 97 07/15/17 14:13 Oxygen Delivery Oxygen Delivery Room Air Medical Decision Making - Medical Records Medical records reviewed: Yes I reviewed the patient's medical records. - Lab Data Lab results reviewed: Yes I reviewed the patient's lab results. Result diagrams: 07/15/17 12:43 07/15/17 12:43 Lab Results 07/15/17 07/15/17 07/15/17 Range/Units 12:33 12:43 12:43 WBC 7.0 (4.3-11.1) K/mcL RBC 4.92 (4.19-5.50) M/mcL Hgb 14.8 (12.9-16.9) g/dL Hct 44.6 (37.5-50.1) % MCV 90.7 (83.0-100.0) fL MCH 30.1 (28.0-33.3) pg MCHC 33.2 (31.6-35.5) g/dL RDW 12.3 (11.5-14.5) % Plt Count 149 (140-400) K/mcL MPV 10.4 (9.4-12.4) fL Immature Gran % 0.1 (0-4) % Seg Neutrophils % 70.9 % Lymphocytes % 15.8 % Monocytes % 8.5 % Eosinophils % 4.4 % Basophils % 0.3 % Neutrophils # 4.9 (1.6-8.9) K/mcL Lymphocytes # 1.1 (0.6-4.6) K/mcL Monocytes # 0.6 (0.0-1.3) K/mcL Eosinophils # 0.3 (0.0-0.6) K/mcL Basophils # 0.0 (0.0-0.2) K/mcL PT 11.2 (9.4-12.1) Seconds INR 1.0 APTT 27.2 (26.0-36.0) Seconds Sodium 141 (136-145) mEq/L Potassium 4.0 (3.5-5.1) mEq/L Chloride 105 (98-107) mEq/L Carbon Dioxide 34 H (23-29) mEq/L BUN 17 (8-23) mg/dL Creatinine 1.11 (0.70-1.30) mg/dL Est GFR ( Amer) > 60 (> 60) Est GFR (Non-Af Amer) > 60 (> 60) BUN/Creatinine Ratio 15 (6-26) Glucose 144 H (70-105) mg/dL Calculated Osmolality 296 (280-300) Calcium 8.7 (8.6-10.3) mg/dL Troponin I < 0.03 (< 0.04) ng/mL - Radiology Data Radiology results reviewed: Yes I reviewed the patient's radiology results. Abdomen/Pelvis CTA 07/15/17 00:00 IMPRESSION: No evidence of aortic dissection in the chest, abdomen or pelvis. Infrarenal abdominal aortic aneurysm measuring approximately 4.9 cm in diameter previously measuring 4.7 cm in diameter. Stable crescentic mural thrombus. No evidence of central pulmonary embolism. No acute process in the chest, abdomen or pelvis to explain patient's symptoms of back pain. Stable areas of fat infarction in the right retroperitoneum and right lateral abdominal wall likely secondary to prior surgery and previous right renal cystectomy. No change since the prior exams. Stable appearance of multiple midline ventral abdominal wall fat containing hernias without acute hernia complication. RECOMMENDATIONS: Managing Abdominal Aortic Aneurysms 4.5-5.4 cm: Every 6 months. Recommend vascular consultation. Reference: J Vasc Surg. 2008;50(4 Suppl):S2-49 D/ : / 07/15/2017 15:23:45 Hugh Garcia MD / Christiana Whitney Interpreting Provider: Hugh Garcia MD Chest X-Ray 07/15/17 12:33 IMPRESSION: No acute process. D/ / Marcial Jewell MD / Marcial Jewell MD Interpreting Provider: Marcial Jewell MD Chest CTA 07/15/17 12:59 IMPRESSION: No evidence of aortic dissection in the chest, abdomen or pelvis. Infrarenal abdominal aortic aneurysm measuring approximately 4.9 cm in diameter previously measuring 4.7 cm in diameter. Stable crescentic mural thrombus. No evidence of central pulmonary embolism. No acute process in the chest, abdomen or pelvis to explain patient's symptoms of back pain. Stable areas of fat infarction in the right retroperitoneum and right lateral abdominal wall likely secondary to prior surgery and previous right renal cystectomy. No change since the prior exams. Stable appearance of multiple midline ventral abdominal wall fat containing hernias without acute hernia complication. RECOMMENDATIONS: Managing Abdominal Aortic Aneurysms 4.5-5.4 cm: Every 6 months. Recommend vascular consultation. Reference: J Vasc Surg. 2008;50(4 Suppl):S2-49 D/ : / 07/15/2017 15:23:45 Huhg Garcia MD / Christiana Whitney Interpreting Provider: Hugh Garcia MD - EKG Data EKG #1 EKG attestation: Yes I reviewed and interpreted this EKG. EKG results narrative: Normal sinus rhythm at a rate of 93. NH interval is 181. QRS duration is 97. QTC is 332. QTC is 383. No signs of acute ischemia. No significant change from previous EKG dated 12/18/2016. Heart Score - Score History: Highly Suspicious EKG: Non Specific repolarisation Disturbance Age: Greater than 65 Risk Factors: Equal/Greater than 3 risk factor or history of atherosclerotic disease Troponin: Less than normal limit HEART Score Total: 7
[2017-07-15 13:14] LABS: Basophils % 0.3 %; Eosinophils # 0.3 K/mcL (0.0-0.6); Eosinophils % 4.4 %; Hematocrit 44.6 % (37.5-50.1); Hemoglobin 14.8 g/dL (12.9-16.9); Immature Granulocytes % 0.1 % (0-4); Lymphocytes # 1.1 K/mcL (0.6-4.6); Lymphocytes % 15.8 %; Mean Corpuscular HGB Conc 33.2 g/dL (31.6-35.5); Mean Corpuscular Hemoglobin 30.1 pg (28.0-33.3); Mean Corpuscular Volume 90.7 fL (83.0-100.0); Mean Platelet Volume 10.4 fL (9.4-12.4); Monocytes # 0.6 K/mcL (0.0-1.3); Monocytes % 8.5 %; Neutrophils # 4.9 K/mcL (1.6-8.9); Platelet Count 149 K/mcL (140-400); Red Blood Count 4.92 M/mcL (4.19-5.50); Red Cell Distribution Width 12.3 % (11.5-14.5); Segmented Neutrophils % 70.9 %
[2017-07-15 13:23] LABS: Prothrombin Time 11.2 Seconds (9.4-12.1)
[2017-07-15 13:26] LABS: Activated Partial Thrombo Time 27.2 Seconds (26.0-36.0)
[2017-07-15 13:31] LABS: BUN/Creatinine Ratio 15 (6-26); Blood Urea Nitrogen 17 mg/dL (8-23); Calcium 8.7 mg/dL (8.6-10.3); Carbon Dioxide 34 mEq/L (23-29); Chloride 105 mEq/L (98-107); Glucose 144 mg/dL (70-105); Osmolality,Calculated 296 (280-300); Sodium 141 mEq/L (136-145); Troponin I < 0.03 ng/mL (< 0.04); eGFR For African Americans > 60 (> 60); eGFR For Non-African Americans > 60 (> 60)
--- NOTE | 2017-07-15 14:57 | Emergency Department Note ---
Disposition Clinical Impression: ACS (acute coronary syndrome) Disposition: Admitted As Inpatient Referrals: Mack Briones MD [Primary Care Provider] - Forms: ED Satisfaction Letter General Adult HPI - General Chief complaint: ED Chest Pain Stated complaint: CP Time Seen by Provider: 07/15/17 12:32 Source: patient Limitations: no limitations - History of Present Illness Pain Scale: 2 - Related Data Home Medications Medication Instructions Recorded Confirmed Aspirin Enteric Coated [Aspirin EC] 81 mg PO QAM 01/01/15 06/14/17 Doxazosin [Cardura] 8 mg PO QAM 01/01/15 06/14/17 Metoprolol Succinate 100 mg PO QPM 03/09/16 06/14/17 hydroCHLOROthiazide 25 mg PO DAILY 12/27/16 06/14/17 [Hydrochlorothiazide] Ubidecarenone [Coq10] 50 mg PO DAILY 06/14/17 06/14/17 Previous Rx's Medication Instructions Recorded Lisinopril [Zestril] 40 mg PO QPM #30 tablet 03/10/16 Allergies Allergy/AdvReac Type Severity Reaction Status Date / Time losartan Allergy See Verified 06/14/17 15:15 Comments amlodipine [From Norvasc] AdvReac Palpitation Verified 06/14/17 15:15 s Gnivlxd-Dso-Vzl Reductase AdvReac Muscle Pain Verified 06/14/17 15:15 Inhibitor [Statins] most pain medication AdvReac Dizziness Uncoded 06/14/17 15:15 water pills AdvReac See Uncoded 06/14/17 15:15 Comments Past Medical History - Past Medical History Medical history: Reports: aortic aneurysm, coronary artery disease, hyperlipidemia, hypertension, myocardial infarction, thyroid disease Surgical history: Reports: angioplasty/stent, herniorrhaphy, other Psychiatric history: Reports: no psych history - Social History Smoking Status: Former smoker Smokeless Tobacco Status: No Alcohol use: Reports: none Drug use: Reports: none Physical Exam - General Limitations: no limitations General appearance: alert Course - Reevaluation(s) Reevaluation #1: ATTESTATION NOTE I examined this patient and my medical decision-making was reviewed with the Resident Physician, BRIAN HAYWOOD. I agree with the documented findings, disposition and treatment plan as described except to the extent set forth below. I have personally performed a face to face evaluation on this patient. I have reviewed and agree with the care plan. Briefly: 71-year-old male history of AAA comes in with chest pain shortness of breath EKG shows no acute ischemic changes. CT of the chest and abdomen show there is no leaking AAA however increased from 4.7 of 4.9 cm with stable- year-old thrombus. Patient's heart score is 5 denoting moderate risk. Patient be admitted for chest pain ACS. Provided 45 minutes critical care service this patient. Admission disposition pending. Time: 14:56 Vital Signs Temperature 98.0 F 07/15/17 12:27 Pulse Rate 94 07/15/17 12:27 Respiratory Rate 18 07/15/17 12:27 Blood Pressure 179/118 07/15/17 12:27 O2 Sat by Pulse Oximetry 96 07/15/17 12:27 Temperature 98.0 F 07/15/17 12:27 Pulse Rate 80 07/15/17 14:13 Respiratory Rate 18 07/15/17 14:13 Blood Pressure 143/87 07/15/17 14:13 O2 Sat by Pulse Oximetry 97 07/15/17 14:13 Oxygen Delivery Oxygen Delivery Room Air Medical Decision Making - Lab Data Result diagrams: 07/15/17 12:43 07/15/17 12:43 Lab Results 07/15/17 07/15/17 07/15/17 Range/Units 12:33 12:43 12:43 WBC 7.0 (4.3-11.1) K/mcL RBC 4.92 (4.19-5.50) M/mcL Hgb 14.8 (12.9-16.9) g/dL Hct 44.6 (37.5-50.1) % MCV 90.7 (83.0-100.0) fL MCH 30.1 (28.0-33.3) pg MCHC 33.2 (31.6-35.5) g/dL RDW 12.3 (11.5-14.5) % Plt Count 149 (140-400) K/mcL MPV 10.4 (9.4-12.4) fL Immature Gran % 0.1 (0-4) % Seg Neutrophils % 70.9 % Lymphocytes % 15.8 % Monocytes % 8.5 % Eosinophils % 4.4 % Basophils % 0.3 % Neutrophils # 4.9 (1.6-8.9) K/mcL Lymphocytes # 1.1 (0.6-4.6) K/mcL Monocytes # 0.6 (0.0-1.3) K/mcL Eosinophils # 0.3 (0.0-0.6) K/mcL Basophils # 0.0 (0.0-0.2) K/mcL PT 11.2 (9.4-12.1) Seconds INR 1.0 APTT 27.2 (26.0-36.0) Seconds Sodium 141 (136-145) mEq/L Potassium 4.0 (3.5-5.1) mEq/L Chloride 105 (98-107) mEq/L Carbon Dioxide 34 H (23-29) mEq/L BUN 17 (8-23) mg/dL Creatinine 1.11 (0.70-1.30) mg/dL Est GFR ( Amer) > 60 (> 60) Est GFR (Non-Af Amer) > 60 (> 60) BUN/Creatinine Ratio 15 (6-26) Glucose 144 H (70-105) mg/dL Calculated Osmolality 296 (280-300) Calcium 8.7 (8.6-10.3) mg/dL Troponin I < 0.03 (< 0.04) ng/mL
--- NOTE | 2017-07-15 16:14 | Internal Med History&Physical ---
Date of Encounter: 07/15/17 Time of Encounter: 16:12 Assessment and Plan (1) Diabetes 1.5, managed as type 2 Current visit: Yes Status: Acute (2) Chest pain Current visit: Yes Status: Acute chest pain lasted 30 mins and now resolved Qualifiers: Chest pain type: unspecified Qualified Code(s): R07.9 - Chest pain, unspecified (3) Hypertension Current visit: No Status: Chronic Chronic now well controlled will adjust his medication Qualifiers: Hypertension type: essential hypertension Qualified Code(s): I10 - Essential (primary) hypertension (4) AAA (abdominal aortic aneurysm) Current visit: No Status: Chronic Stable last measurement 4.9 cm Qualifiers: Presence of rupture: without rupture Qualified Code(s): I71.4 - Abdominal aortic aneurysm, without rupture (5) CAD (coronary artery disease) Current visit: No Status: Chronic Previous angioplasty last cardiac catheter July no intervention was done Qualifiers: Coronary Disease-Associated Artery/Lesion type: [place] artery [place] vs. transplanted heart: [place] heart Associated angina: with other forms of angina Qualified Code(s): I25.118 - Atherosclerotic heart disease of [place] coronary artery with other forms of angina pectoris (6) HLD (hyperlipidemia) Current visit: No Status: Chronic Chronic recheck in a.m. Qualifiers: Hyperlipidemia type: pure hypercholesterolemia Qualified Code(s): E78.00 - Pure hypercholesterolemia, unspecified; E78.0 - Pure hypercholesterolemia (7) HTN (hypertension) Current visit: No Status: Chronic Qualifiers: Hypertension type: essential hypertension Qualified Code(s): I10 - Essential (primary) hypertension Internal Medicine - H&P: HPI Chief complaint: chest pain Admitted From: Emergency Dept Plans for Post Hospital Care: Home History of present illness: Mr. Vail is a 71 year old male Patient with history of CAD had a stent placed in the past last cardiac catheter July last no intervention was done patient has a history of hypertension, morbid obesity, diabetes, high cholesterol, and AAA measured 4.9 cm presented emergency room with chest pain associated with shortness of breath lasted about 30 minutes and is now completely resolved EKG is is unremarkable but given his history he been admitted for further evaluation. Past Med Surg Social Fam HX - Past Medical History Medical history: aortic aneurysm, coronary artery disease, hyperlipidemia, hypertension, myocardial infarction, thyroid disease Psychiatric history: no psych history - Past Surgical History Surgical History: angioplasty/stent, herniorrhaphy, other - Social History Smoking Status: Former smoker Smokeless Tobacco Status: No Alcohol use: none Drug use: none - Family History Son Living Status: Mother Living Status: Sister Living Status: Internal Medicine - H&P: Meds Aspirin Enteric Coated [Aspirin EC] 81 mg PO QPM 01/01/15 [History] Metoprolol Succinate 100 mg PO QPM 03/09/16 [History] hydroCHLOROthiazide [Hydrochlorothiazide] 25 mg PO DAILY PRN 12/27/16 [History] Cyanocobalamin (Vitamin B-12) [Vitamin B12] 1,000 mcg PO QAM 07/15/17 [History] Doxazosin Mesylate [Cardura] 8 mg PO QPM 07/15/17 [History] Lisinopril [Zestril] 40 mg PO QAM 07/15/17 [History] Ubidecarenone [Co Q-10] 200 mg PO QAM 07/15/17 [History] 3 Allergy/AdvReac Type Severity Reaction Status Date / Time losartan Allergy See Verified 06/14/17 15:15 Comments amlodipine [From Norvasc] AdvReac Palpitation Verified 06/14/17 15:15 s [id number] Reductase AdvReac Muscle Pain Verified 06/14/17 15:15 Inhibitor [Statins] most pain medication AdvReac Dizziness Uncoded 06/14/17 15:15 water pills AdvReac See Uncoded 06/14/17 15:15 Comments All Systems PM: A 10-system review of systems was performed and is negative for pertinent findings except as documented above in the HPI. - Constitutional Constitutional: no chills, no fever(s), no night sweats - EENT Eyes: no change in vision, no discharge, no pain, no photophobia Ears: no ear discharge, no ear pain, no tinnitus Nose, mouth and throat: no dysphagia, no nasal discharge, no neck pain, no sore throat - Cardiovascular Cardiovascular ROS IM: chest pain, dyspnea on exertion - Respiratory Respiratory: dyspnea on exertion - Gastrointestinal Gastrointestinal: no abdominal pain, no diarrhea, no hematemesis, no hematochezia, no melena, no nausea, no vomiting - Musculoskeletal Musculoskeletal ROS IM: no numbness, no tingling - Integumentary Integumentary IM: no rash, no unusual bruising - Neurological Neurological ROS: no confusion, no convulsions, no focal weakness, no numbness, no tingling, no tremor(s) - Constitutional Vitals: Temp Pulse Resp BP Pulse Ox 98.0 F 80 18 143/87 97 07/15/17 12:27 07/15/17 14:13 07/15/17 14:13 07/15/17 14:13 07/15/17 14:13 - Head Head exam: Present: atraumatic, normocephalic - Eye Eye exam: Present: PERRL, conjuntiva pink, sclera anicteric Pupils: Present: PERRL - Neck Neck exam general surgery: Present: supple, trachea midline. Absent: lymphadenopathy - Respiratory Respiratory exam: Present: CTAB. Absent: accessory muscle use, rales, rhonchi, wheezes - Cardiovascular Cardiovascular exam: Present: RRR, +S1, +S2. Absent: diastolic murmur, gallop, rubs, systolic murmur - GI/Abdominal GI/Abdominal exam: Present: normal bowel sounds, soft, no peritoneal signs. Absent: distended, tenderness - Extremities Exam Extremities exam: Present: warm, radial pulses palpable and symmetrical. Absent : calf tenderness, cyanotic, pedal edema - Neurological Exam Neurological exam: Present: CN II-XII intact, oriented X3, no focal deficits. Absent: pronater drift, facial droop, speech deficit - Skin Skin exam: Present: dry, intact Internal Med - H&P Results - Labs CBC & Chem 7: 07/15/17 12:43 07/15/17 12:43 Labs: Short CBC 07/15/17 Range/Units 12:43 WBC 7.0 (4.3-11.1) K/mcL Hgb 14.8 (12.9-16.9) g/dL Hct 44.6 (37.5-50.1) % Plt Count 149 (140-400) K/mcL Neutrophils # 4.9 (1.6-8.9) K/mcL BMP 07/15/17 12:43 Sodium 141 Potassium 4.0 Chloride 105 Carbon Dioxide 34 H BUN 17 Creatinine 1.11 Glucose 144 H Calcium 8.7 Cardiac Enzymes 07/15/17 Range/Units 12:43 Troponin I < 0.03 (< 0.04) ng/mL - Impressions ITS Impressions Abdomen/Pelvis CTA 07/15/17 00:00 IMPRESSION: No evidence of aortic dissection in the chest, abdomen or pelvis. Infrarenal abdominal aortic aneurysm measuring approximately 4.9 cm in diameter previously measuring 4.7 cm in diameter. Stable crescentic mural thrombus. No evidence of central pulmonary embolism. No acute process in the chest, abdomen or pelvis to explain patient's symptoms of back pain. Stable areas of fat infarction in the right retroperitoneum and right lateral abdominal wall likely secondary to prior surgery and previous right renal cystectomy. No change since the prior exams. Stable appearance of multiple midline ventral abdominal wall fat containing hernias without acute hernia complication. RECOMMENDATIONS: Managing Abdominal Aortic Aneurysms 4.5-5.4 cm: Every 6 months. Recommend vascular consultation. Reference: J Vasc Surg. 2008;50(4 Suppl):S2-49 D/ : / 07/15/2017 15:23:45 Hugh Garcia MD / Christiana Whitney Interpreting Provider: Hugh Garcia MD Chest X-Ray 07/15/17 12:33 IMPRESSION: No acute process. D/ / Marcial Jewell MD / Marcial Jewell MD Interpreting Provider: Marcial Jewell MD Chest CTA 07/15/17 12:59 IMPRESSION: No evidence of aortic dissection in the chest, abdomen or pelvis. Infrarenal abdominal aortic aneurysm measuring approximately 4.9 cm in diameter previously measuring 4.7 cm in diameter. Stable crescentic mural thrombus. No evidence of central pulmonary embolism. No acute process in the chest, abdomen or pelvis to explain patient's symptoms of back pain. Stable areas of fat infarction in the right retroperitoneum and right lateral abdominal wall likely secondary to prior surgery and previous right renal cystectomy. No change since the prior exams. Stable appearance of multiple midline ventral abdominal wall fat containing hernias without acute hernia complication. RECOMMENDATIONS: Managing Abdominal Aortic Aneurysms 4.5-5.4 cm: Every 6 months. Recommend vascular consultation. Reference: J Vasc Surg. 2008;50(4 Suppl):S2-49 D/ / 07/15/2017 15:23:45 Hugh Garcia MD / Christiana Whitney Interpreting Provider: Hugh Garcia MD
[2017-07-15] MEDS ORDERED: Acetaminophen 325 MG TABLET PO PRN (16:21)
[2017-07-15] MEDS ORDERED: traMADol 50 MG TABLET PO PRN (16:21)
[2017-07-15] MEDS ORDERED: Naloxone 0.4 MG/ML INJ IVP PRN (16:21)
[2017-07-15] MEDS ORDERED: hydroCHLOROthiazide 25 MG TABLET PO PRN (16:22)
[2017-07-15] MEDS: 0.9 % Sodium Chloride 1,000 ML IVC SCH (18:30)
[2017-07-15] MEDS: Metoprolol XL (24 HR) Succ 50 MG TAB.ER.24H PO SCH (18:33)
[2017-07-15] MEDS: Aspirin Enteric Coated 81 MG Tablet PO SCH (18:33)
[2017-07-16 06:11] LABS: BUN/Creatinine Ratio 14 (6-26); Blood Urea Nitrogen 14 mg/dL (8-23); Calcium 8.3 mg/dL (8.6-10.3); Carbon Dioxide 28 mEq/L (23-29); Chloride 108 mEq/L (98-107); Chol/HDL Ratio 6.8 (0-4.9); Cholesterol 191 mg/dL (< 200); Glucose 100 mg/dL (70-105); HDL Cholesterol 28 mg/dL (40-59); LDL Cholesterol,Calculated 135 mg/dL (0-99); Magnesium 1.9 mg/dL (1.6-2.6); Osmolality,Calculated 293 (280-300); Potassium 4.1 mEq/L (3.5-5.1); Sodium 141 mEq/L (136-145); Triglycerides 138 mg/dL (< 150); eGFR For African Americans > 60 (> 60); eGFR For Non-African Americans > 60 (> 60)
[2017-07-16] MEDS ORDERED: Regadenoson 0.4 MG/5 ML SYRINGE IVP ONE (06:42)
[2017-07-16] MEDS: Lisinopril 20 MG TABLET PO SCH (08:01)
[2017-07-16] MEDS: (Ubidecarenone [Co Q-10] 200 MG) PO SCH (08:08)
[2017-07-16] MEDS: 0.9 % Sodium Chloride 1,000 ML IVC SCH (08:13)
[2017-07-16] MEDS: Cyanocobalamin (B-12) 1,000 MCG TABLET PO SCH (08:18)
--- NOTE | 2017-07-16 10:58 | Internal Med Progress Note ---
Date of Encounter: 07/16/17 Time of Encounter: 10:57 - Assessment and plan (1) Chest pain Current Visit: Yes Status: Acute Assessment and plan: Has not been experiencing any chest pain at this time troponins have been negative [address]-T wave abnormalities. Patient underwent first half of cardiac stress test today. He will be nothing by mouth after midnight for second-half in a.m. and Continuous cardiac monitoring Willy glycerin as needed for chest pain Qualifiers: Chest pain type: unspecified Qualified Code(s): R07.9 - Chest pain, unspecified (2) AAA (abdominal aortic aneurysm) Current Visit: No Status: Chronic Assessment and plan: Patient has known AAA he is being followed by Dr. Dale as outpatient. Stable at this time last measurement 4.9 cm Qualifiers: Presence of rupture: without rupture Qualified Code(s): I71.4 - Abdominal aortic aneurysm, without rupture (3) CAD (coronary artery disease) Current Visit: No Status: Chronic Assessment and plan: We will continue with aspirin beta brandon Akhil patient is unable to take statins due to allergy Qualifiers: Coronary Disease-Associated Artery/Lesion type: [place] artery [place] vs. transplanted heart: [place] heart Associated angina: with other forms of angina Qualified Code(s): I25.118 - Atherosclerotic heart disease of [place] coronary artery with other forms of angina pectoris (4) HLD (hyperlipidemia) Current Visit: No Status: Chronic Assessment and plan: We will check lipid profile patient is unable to take statins due to allergy Qualifiers: Hyperlipidemia type: pure hypercholesterolemia Qualified Code(s): E78.00 - Pure hypercholesterolemia, unspecified; E78.0 - Pure hypercholesterolemia (5) HTN (hypertension) Current Visit: No Status: Chronic Assessment and plan: Patient's blood pressure has been elevated today-he was unable take his medication till later in the morning we did resume his home medication. As well as patient has been anxious. We will continue to monitor he does have a when necessary hydrochlorothiazide Qualifiers: Hypertension type: essential hypertension Qualified Code(s): I10 - Essential (primary) hypertension - Time Spent With Patient Total time spent is greater than 50% in coordination of care (as documented) at patient's floor/unit and/or counseling patient: - Subjective Interval history: Patient is new to me I have reviewed records. Presently patient denies any chest pain at this time he is waiting to go to his first half of stress test today. - Constitutional Vitals: Temp Pulse Resp BP Pulse Ox 97.7 F 66 17 152/105 95 07/16/17 08:13 07/16/17 08:13 07/16/17 08:13 07/16/17 08:13 07/16/17 08:13 General appearance: Present: A&O X 3 - Head Head exam: Present: atraumatic, normocephalic - Eye Eye exam: Present: PERRL, conjuntiva pink, sclera anicteric Pupils: Present: PERRL - Neck Neck exam general surgery: Present: supple, trachea midline. Absent: lymphadenopathy - Respiratory Respiratory exam: Present: CTAB. Absent: accessory muscle use, rales, rhonchi, wheezes - Cardiovascular Cardiovascular exam: Present: RRR, +S1, +S2. Absent: diastolic murmur, gallop, rubs, systolic murmur - GI/Abdominal GI/Abdominal exam: Present: normal bowel sounds, soft, no peritoneal signs. Absent: distended, tenderness - Extremities Exam Extremities exam: Present: warm, radial pulses palpable and symmetrical. Absent : calf tenderness, cyanotic, pedal edema - Neurological Exam Neurological exam: Present: CN II-XII intact, oriented X3, no focal deficits. Absent: pronater drift, facial droop, speech deficit - Skin Skin exam: Present: dry, intact Internal Medicine: Result - Labs CBC & Chem 7: 07/15/17 12:43 07/16/17 04:59 Labs: BMP 07/16/17 04:59 Sodium 141 Potassium 4.1 Chloride 108 H Carbon Dioxide 28 BUN 14 Creatinine 1.03 Glucose 100 Calcium 8.3 L Cardiac Enzymes 07/15/17 07/16/17 Range/Units 22:27 04:59 Troponin I < 0.03 < 0.03 (< 0.04) ng/mL - ABG Interpretation ABG results: PT/INR, D-dimer PT 11.2 Seconds (9.4-12.1) 07/15/17 12:33 Consult Discharge Plan - Plan Referrals: Mack Briones MD [Primary Care Provider] -
[2017-07-16] MEDS: Metoprolol XL (24 HR) Succ 50 MG TAB.ER.24H PO SCH (17:06)
[2017-07-16] MEDS: Aspirin Enteric Coated 81 MG Tablet PO SCH (17:07)
--- NOTE | 2017-07-16 23:01 | Electrocardiograph Report ---
[facility] Test Date: 2017-07-15 Pat Name: Schuyler Vail Department: 104 Room: 3B46 Gender: M Emergency Room Technician: : 1945 Requested By: Bharti Haq Order Number: [id number] [place] MD: Gustavo Bañuelos Measurements Intervals [place] Rate: 93 P: 32 CT: 181 QRS: -68 QRSD: 97 T: 3 QT: 332 QTc: 383 Interpretive Statements SINUS RHYTHM LOW QRS VOLTAGE IN PRECORDIAL LEADS INCOMPLETE RIGHT BUNDLE BRANCH BLOCK LEFT ANTERIOR FASCICULAR BLOCK ANTERIOR MYOCARDIAL INFARCTION, PROBABLY OLD INFERIOR MYOCARDIAL INFARCTION, PROBABLY OLD WARNING: DATA QUALITY MAY AFFECT INTERPRETATION Left axis deviation Electronically Signed On 07-16-2017 22:59:39 EDT by Gustavo Bañuelos
[2017-07-17 05:42] LABS: Basophils % 0.4 %; Eosinophils # 0.3 K/mcL (0.0-0.6); Eosinophils % 4.5 %; Hematocrit 42.6 % (37.5-50.1); Hemoglobin 14.4 g/dL (12.9-16.9); Immature Granulocytes % 0.4 % (0-4); Lymphocytes # 1.1 K/mcL (0.6-4.6); Lymphocytes % 14.9 %; Mean Corpuscular HGB Conc 33.8 g/dL (31.6-35.5); Mean Corpuscular Hemoglobin 30.8 pg (28.0-33.3); Mean Platelet Volume 10.9 fL (9.4-12.4); Monocytes # 0.6 K/mcL (0.0-1.3); Monocytes % 7.9 %; Neutrophils # 5.2 K/mcL (1.6-8.9); Platelet Count 146 K/mcL (140-400); Red Blood Count 4.68 M/mcL (4.19-5.50); Red Cell Distribution Width 12.5 % (11.5-14.5); Segmented Neutrophils % 71.9 %
[2017-07-17 07:46] LABS: BUN/Creatinine Ratio 14 (6-26); Blood Urea Nitrogen 14 mg/dL (8-23); Carbon Dioxide 25 mEq/L (23-29); Chloride 109 mEq/L (98-107); Glucose 113 mg/dL (70-105); Potassium 4.5 mEq/L (3.5-5.1); Sodium 140 mEq/L (136-145); eGFR For African Americans > 60 (> 60); eGFR For Non-African Americans > 60 (> 60)
[2017-07-17 07:47] LABS: Calcium 8.9 mg/dL (8.6-10.3); Osmolality,Calculated 291 (280-300)
[2017-07-17] MEDS: Cyanocobalamin (B-12) 1,000 MCG TABLET PO SCH (09:31)
[2017-07-17] MEDS: Lisinopril 20 MG TABLET PO SCH (09:31)
[2017-07-17] MEDS: (Ubidecarenone [Co Q-10] 200 MG) PO SCH (09:32)
--- NOTE | 2017-07-17 12:47 | Internal Med Progress Note ---
Date of Encounter: 07/17/17 Time of Encounter: 12:46 - Assessment and plan (1) Chest pain Current Visit: Yes Status: Acute Assessment and plan: Has not been experiencing any chest pain at this time troponins have been negative [address]-T wave abnormalities. Patient underwent first half of cardiac stress test today. Underwent second half of stress test today was notified of abnormal results mild to moderate intensity resting perfusion defect involving the basal to mid inferior and inferolateral wall. Continuous cardiac monitoring Nitroglycerin as needed Consulted cardiology -spoke with Dr. Bird Qualifiers: Chest pain type: unspecified Qualified Code(s): R07.9 - Chest pain, unspecified (2) AAA (abdominal aortic aneurysm) Current Visit: No Status: Chronic Assessment and plan: Patient has known AAA he is being followed by Dr. Dale as outpatient. Stable at this time last measurement 4.9 cm Qualifiers: Presence of rupture: without rupture Qualified Code(s): I71.4 - Abdominal aortic aneurysm, without rupture (3) CAD (coronary artery disease) Current Visit: No Status: Chronic Assessment and plan: We will continue with aspirin beta brandon Kahil patient is unable to take statins due to allergy. Patient did have a left heart catheter and coronary angioplasty with stent placement 04/06/2009 Qualifiers: Coronary Disease-Associated Artery/Lesion type: [place] artery [place] vs. transplanted heart: [place] heart Associated angina: with other forms of angina Qualified Code(s): I25.118 - Atherosclerotic heart disease of [place] coronary artery with other forms of angina pectoris (4) HLD (hyperlipidemia) Current Visit: No Status: Chronic Assessment and plan: Patient is allergic to statins check lipid profile Qualifiers: Hyperlipidemia type: pure hypercholesterolemia Qualified Code(s): E78.00 - Pure hypercholesterolemia, unspecified; E78.0 - Pure hypercholesterolemia (5) HTN (hypertension) Current Visit: No Status: Chronic Assessment and plan: Blood pressure stable at this time continue with home medications Qualifiers: Hypertension type: essential hypertension Qualified Code(s): I10 - Essential (primary) hypertension (6) Abnormal stress test Current Visit: Yes Status: Acute Assessment and plan: 1 patient underwent a pharmacological nuclear stress test today. Notified of abnormal results. Mild to moderate intensity resting perfusion defect involving the basal to mid inferior and inferolateral wall. Associated with abnormal wall motion. I did speak with Dr. Bird who is on-call for cardiology he will see patient upon consult - Time Spent With Patient Total time spent is greater than 50% in coordination of care (as documented) at patient's floor/unit and/or counseling patient: - Subjective Interval history: Patient examine and seen aat bedside,denies any pain or discomfort . He underwent second half of stress test. Notified that patient had abnorrmal results: Mild to moderate intensity resting perfusion defect involving the basal to mid inferior and inferolateral wall. Did update patient as well notified cardiology - Constitutional Vitals: Temp Pulse Resp BP Pulse Ox 98.2 F 64 14 119/77 97 07/17/17 11:20 07/17/17 11:20 07/17/17 11:20 07/17/17 11:20 07/17/17 11:20 General appearance: Present: A&O X 3 - Head Head exam: Present: atraumatic, normocephalic - Eye Eye exam: Present: PERRL, conjuntiva pink, sclera anicteric Pupils: Present: PERRL - Neck Neck exam general surgery: Present: supple, trachea midline. Absent: lymphadenopathy - Respiratory Respiratory exam: Present: CTAB. Absent: accessory muscle use, rales, rhonchi, wheezes - Cardiovascular Cardiovascular exam: Present: RRR, +S1, +S2. Absent: diastolic murmur, gallop, rubs, systolic murmur - GI/Abdominal GI/Abdominal exam: Present: normal bowel sounds, soft, no peritoneal signs. Absent: distended, tenderness - Extremities Exam Extremities exam: Present: warm, radial pulses palpable and symmetrical. Absent : calf tenderness, cyanotic, pedal edema - Neurological Exam Neurological exam: Present: CN II-XII intact, oriented X3, no focal deficits. Absent: pronater drift, facial droop, speech deficit - Skin Skin exam: Present: dry, intact Internal Medicine: Result - Labs CBC & Chem 7: 07/17/17 04:53 07/17/17 06:35 Labs: Short CBC 07/17/17 Range/Units 04:53 WBC 7.3 (4.3-11.1) K/mcL Hgb 14.4 (12.9-16.9) g/dL Hct 42.6 (37.5-50.1) % Plt Count 146 (140-400) K/mcL Neutrophils # 5.2 (1.6-8.9) K/mcL BMP 07/17/17 06:35 Sodium 140 Potassium 4.5 Chloride 109 H Carbon Dioxide 25 BUN 14 Creatinine 1.03 Glucose 113 H Calcium 8.9 - ABG Interpretation ABG results: PT/INR, D-dimer PT 11.2 Seconds (9.4-12.1) 07/15/17 12:33 Consult Discharge Plan - Plan Referrals: Mack Briones MD [Primary Care Provider] -
[2017-07-17] MEDS ORDERED: 0.9 % Sodium Chloride 1,000 ML ONE ×2 (13:25→13:59)
[2017-07-17] MEDS ORDERED: ISOVUE-370 200 ML INFUS..BTL IV ONE (13:25)
[2017-07-17] MEDS ORDERED: *HR* Heparin 10,000 UNIT/10 ML VIAL ONE (13:25)
[2017-07-17] MEDS ORDERED: Heparin 1,000 UNITS/500 mL 500 ML ONE (13:25)
[2017-07-17] MEDS ORDERED: Nitroglycerin 1,000 MCG/10 ML VIAL IV ONE (13:25)
--- NOTE | 2017-07-17 13:30 | Cardiology Consult Note ---
<Brandon Coleman - Last Filed: 07/17/17 13:24> Date of Encounter: 07/17/17 Time of Encounter: 13:24 Assessment and Plan (1) Chest pain Status: Acute chest pain increasing in frequency. Known moderate non-obstructive CAD seen on [facility] 07/2016. Troponin negative x3. EKG with no acute ST changes. Previous cardiac testing reviewed: Stress test 07/2016- There was a prior infarct seen in the basal to mid inferior and basal to mid inferiolateral wall with no ischemia. Gated EF 70%. [facility] showed 07/2016- moderate non-obstructive CAD. There was a 50-60% stenosis in the 1st diagonal artery, 50% stenosis in the Lcx artery, and 50% stenosis in the 1st OM. Mild disease otherwise. TTE 07/2016-EF 65%, moderate LVH. No significant valvular disease. No PAH. Stress test this admission was positive for inferior, and inferiolateral wall infarct with chyna-infarct ischemia. New changes compared to stress test prior to [facility] in July 2016. With ongoing symptoms and abnormal stress test [facility] recommended. [facility] R/B/A reviewed. Patient agrees to proceed. Qualifiers: Chest pain type: unspecified Qualified Code(s): R07.9 - Chest pain, unspecified (2) CAD (coronary artery disease) Status: Chronic H/o moderate non-obstructive CAD. Continue asa and bb. Intolerant to statin therapy. Qualifiers: Coronary Disease-Associated Artery/Lesion type: [place] artery [place] vs. transplanted heart: [place] heart Associated angina: with other forms of angina Qualified Code(s): I25.118 - Atherosclerotic heart disease of [place] coronary artery with other forms of angina pectoris (3) AAA (abdominal aortic aneurysm) Status: Chronic known AAA . CTA this admit shows 4.9 cm. Previously seen up to 5.1 CM. Follows with vascular surgery closely and planning intervention. Qualifiers: Presence of rupture: without rupture Qualified Code(s): I71.4 - Abdominal aortic aneurysm, without rupture (4) HTN (hypertension) Status: Chronic B/p acceptable currently. Takes HCTZ PRN. Qualifiers: Hypertension type: essential hypertension Qualified Code(s): I10 - Essential (primary) hypertension Discussion w patient/family: The assessment and plan as outlined above was discussed with the patient and/or family members who expressed understanding and agreement. All questions were answered. Thank you for involving us in the care of your patient. Please call with any questions. History of Present Illness Consult date: 07/17/17 Requesting physician: Abigail Arguello Consult reason: Abnormal stress test Chief complaint: chest pain History of present illness: Mr. Vail is a 71 year old male with past medical history of moderate non- obstructive CAD, HTN, HLD, DM type II, AAA measuring 4.9 CM (previously up to 5.1 cm 06/2017). he presents with the c/o recurrent midsternal chest pressure occurring about every three days. Chest pain occurs at rest. He is limited in activity due to arthritis in his knees. He also c/o elevated blood pressure up to 170/80 at home. He c/o dyspnea that unusually occurs after taking his HCTZ. Cardiology consulted today for abnormal stress test. He currently is pain free. Conversational dyspnea noted. Past Med Surg Social Fam HX - Past Medical History Attestation: Yes The following information was validated with the patient. Medical history: aortic aneurysm, coronary artery disease, hyperlipidemia, hypertension, myocardial infarction, thyroid disease Psychiatric history: no psych history - Past Surgical History Surgical History: angioplasty/stent, herniorrhaphy, other - Social History Smoking Status: Former smoker Smokeless Tobacco Status: No Alcohol use: none Drug use: none - Family History Son Living Status: Mother Living Status: Sister Living Status: Medications and Allergies Aspirin Enteric Coated [Aspirin EC] 81 mg PO QPM 01/01/15 [History] Metoprolol Succinate 100 mg PO QPM 03/09/16 [History] hydroCHLOROthiazide [Hydrochlorothiazide] 25 mg PO DAILY PRN 12/27/16 [History] Cyanocobalamin (Vitamin B-12) [Vitamin B12] 1,000 mcg PO QAM 07/15/17 [History] Doxazosin Mesylate [Cardura] 8 mg PO QPM 07/15/17 [History] Lisinopril [Zestril] 40 mg PO QAM 07/15/17 [History] Ubidecarenone [Co Q-10] 200 mg PO QAM 07/15/17 [History] Isosorbide MONOnitrate (24 HR) [Imdur] 30 mg PO DAILY #30 tab.er.24h 07/18/17 [ Rx] 3 Allergy/AdvReac Type Severity Reaction Status Date / Time losartan Allergy See Verified 06/14/17 15:15 Comments amlodipine [From Norvasc] AdvReac Palpitation Verified 06/14/17 15:15 s Qsrpscx-Sxg-Wmv Reductase AdvReac Muscle Pain Verified 06/14/17 15:15 Inhibitor [Statins] most pain medication AdvReac Dizziness Uncoded 06/14/17 15:15 water pills AdvReac See Uncoded 06/14/17 15:15 Comments All Systems Review: The remainder of the systems were reviewed and are negative Physical Examination Vital Signs, Last 4 Hours Temp Pulse Resp BP Pulse Ox 07/17/17 11:20 98.2 F 64 14 119/77 97 General: Conversant, No Apparent Distress HEENT: Atraumatic, Normocephaly, Mucus Membranes Moist Neck: No JVD, Normal carotid pulses Cardiac: Reg Rate and Rhythm, Normal S1 and S2, No Murmur Lungs: Normal Breath Sounds, No Wheeze, Rales, Rhonchi Neuro: Alert and responsive, No focal deficits noted Abdomen: Soft, Non-Tender Skin: No rashes noted on visualized skin Musculoskeletal: No Chest Wall Tenderness Extremities: No Clubbing, No Cyanosis, No Edema, Normal Pulses Results 07/17/17 04:53 07/17/17 06:35 Lab Results 07/17/17 07/17/17 04:53 06:35 WBC 7.3 Hgb 14.4 Hct 42.6 Plt Count 146 Sodium 140 Potassium 4.5 Chloride 109 H Carbon Dioxide 25 BUN 14 Creatinine 1.03 Glucose 113 H Calcium 8.9 - Imaging and Cardiology Stress Test: report reviewed Echo: report reviewed Cardiac cath: report reviewed - EKG Interpretation EKG results cardiology: personally reviewed Consult Discharge Plan - Plan Instructions: Chest Pain (DC) Additional Instructions: RISK FACTORS: STOP SMOKING: If you smoke, STOP. Smoking or tobacco use significantly increases your risk of heart disease because nicotine causes the arteries to narrow or constrict. It also causes fats to stick to the artery. Your chances of having a heart attack are greatly increased if you continue to smoke. For more information, call the education line for smoking cessation 8-709-OGZSWDU EAT A LOW FAT/CHOLESTEROL/SODIUM DIET: This diet may help reduce your chances of having a heart attack. LIFTING: Avoid lifting anything more than 10 pounds for 5-7 days Prior to straining, laughing, sneezing and/or coughing, apply manual pressure directly over insertion site. ACTIVITY: You may walk or climb stairs as tolerated You can resume sexual activity as tolerated In general, you are encouraged to engage in a minimum of 30 minutes or more of moderate intensity physical activity, such as brisk walking, daily or at least 3 -4 times weekly BATHING Do not submerge the site into water (bath tub, hot tub, swimming pool) for 1 week. This can be a source for infection into the blood stream. You may shower after 24 hours SITE CARE: After 24 hours, you may remove the dressing and leave the site open to air. Keep the site clean and dry. Clean gently and pat dry. You can expect bruising and tenderness that gradually resolve within a week or two. Return to work as instructed per your physician Resume driving as instructed per physician Keep all scheduled follow up appointments Resume medications as instructed IMPORTANT: If prescribed a Platelet Aggregation Inhibitor such as, Plavix, Brilinta or Effient: Duration of therapy is minimum one year These medications are often used in combination with Aspirin in prevention of future heart attacks Never discontinue unless consult with your Manager Contracting STROKE (CVA) Risk factors for a stroke are: Age, cigarette smoking, diabetes, excessive alcohol consumption, family history, high blood pressure, overweight, physical inactivity, prior stroke, heart attack, diagnosis of carotid artery stenosis or other artery disease. Warning signs: Sudden numbness or weakness of the face, arm or leg; especially on one side of the body, sudden confusion, trouble speaking or understanding, sudden trouble seeing in one or both eyes, sudden trouble walking, dizziness, loss of balance or coordination, sudden severe headache with no cause. Call 911 or go to the Emergency Room. CONGESTIVE HEART FAILURE: If you have been diagnosed with Congestive Heart Failure (CHF) and your symptoms return, make an appointment with your physician Weigh yourself daily. Notify your physician if you have a weight gain of two or more pounds in one day or five or more pounds in one week. If you experience any difficulty breathing, please call 911 BLEEDING: Although the risk of bleeding is minimal, it can happen. If you have any bleeding from the site, apply firm pressure above the puncture site for 10-15 minutes. If the bleeding does not stop, continue manual pressure and call 911 Contact your physician if: You develop a fever greater than 101 degrees Fahrenheit Your site becomes reddened or has any drainage You have an increase in pain or burning at the site or if a large knot forms at the site. If you experience chest pain, shortness of breath, dizziness, or extreme tiredness, stop the activity and rest. Please notify your physicians office if you experience any of these symptoms and they are not relieved by rest please call 911! Referrals: Mack Briones MD [Primary Care Provider] - 07/25/17 2:15 pm Shine Hopkins DO [Partnered Physician] - Prescriptions: Isosorbide MONOnitrate (24 HR) [Imdur] 30 mg PO DAILY #30 tab.er.24h <Brandon Bird - Last Filed: 07/23/17 17:46> Date of Encounter: 07/17/17 Time of Encounter: 18:00 - Attending Attestation I have personally performed a face to face evaluation on this patient. I have reviewed and agree with the care plan. History and Exam by me shows: CC: Chest pain PT admitted to hospitalist service, we are consulted for chest pain. Pt complains of severe 8/10 mid sternal chest pain, occurs at rest, associated with shortness of breath, lasts five to fifteen minutes, resolves spontaneously. He is having these episodes every two or three days, sometimes after meals. He has hx CAD, LHC 07/23 showed moderate diffuse CAD, no intervention performed. He is currently pain free at rest. PMHX: reviewed PE: pt seen and examined, agree with findings as documented IMP: 1l Chest pain with new demonstrable reversible ischemia on stress imaging: Recommend LHC/poss, risks and benefits discussed, pt agrees to proceed. 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 Assessment and Plan Discussion w patient/family: The assessment and plan as outlined above was discussed with the patient and/or family members who expressed understanding and agreement. All questions were answered. Thank you for involving us in the care of your patient. Please call with any questions. History of Present Illness History of present illness: Mr. Vail is a 71 year old male All Systems Review: The remainder of the systems were reviewed and are negative Results 07/18/17 06:17 07/18/17 06:17
[2017-07-17] MEDS ORDERED: *HR* FentaNYL (PF) 100 MCG/2 ML VIAL ONE (13:59)
[2017-07-17] MEDS ORDERED: *HR* Midazolam HCl 2 MG/2 ML VIAL ONE (13:59)
--- NOTE | 2017-07-17 14:57 | Invasive Diagnostic Lab Proc ---
Name: cShuyler Vail Date of Study: 07/17/2017 Date: 1945 Ht: 68.1in Medical Record#: [id number] Age: 71 Wt: 270.07lb Gender: Male BSA: 2.32 Order #: [id number] BMI: 40.93 Physicians Procedure Physician: Bronson Lopez MD Referring MD: Referring MD: Staff Name Position Time In [place] Ramesh RN Photographic Spotter 01:59 PM Daljit Holland RN Monitor 01:59 PM Selene Castro RT Scrub 01:59 PM Huan Maloen RN Monitor 01:59 PM Indications Indication Abnormal Test - Stress Procedures Performed Procedure L HRT ARTERY/VENTRICLE ANGIO AORTOGRAPHY, ABDOMINAL S&I Pre-Procedure Checklist Informed consent is complete signed and on chart. H&P is on chart. ID band is on and ID verified with patient. Patient NPO for procedure The procedure was described for the patient and questions were answered. ECG is on chart. Plan of Care Patient will tolerate the procedure without complications. Adequate level of comfort will be maintained. Hemodynamics will remain stable Patient will recover from procedure without complications. Respiratory function will be maintained. Cardiac rhythm will remain stable. Patient temperature will be maintained. Patient and/or family have verbalized understanding of the procedure. Patient Education Chief Complaint/Reason for Test: Cardiac Cath Developmental Category: Geriatric (65+ years) Developmentally Appropriate for Age: Yes Learning Barriers: None Education Needs: Procedure Education Method: Verbal Information Taught: Cardiac Cath Educational Evaluation: Able to repeat information Intravenous Access Time IV Size Location DC'd Fluid/Drip Rate Units RN 18g 1 04/11" Patent On Arrival Rt Antecubital Allergies amlodipine most pain medication Ecptipi-Dcd-Xsi Reductase Inhibitor water pills JESSICA Inhibitor lisinopril losartan Vital Signs Time BP (mmHg) HR (bpm) O2 Sat. RR (bpm) LOC 02:03 PM / % 5 = Fully awake and oriented or at pre-proc level 02:03 PM / % 4 = Oriented but drowsy 02:19 PM / % 4 = Oriented but drowsy 02:06 PM 164 / 89 69 99 % 02:10 PM 158 / 86 61 99 % 02:15 PM 147 / 75 65 94 % 02:20 PM 141 / 74 73 92 % 02:25 PM 124 / 70 79 93 % 02:30 PM 145 / 82 70 96 % 02:35 PM 151 / 82 67 98 % 02:40 PM 155 / 84 65 100 % Procedural Medications Time Medication Dose Units Method Given By 02:04 PM Oxygen 2 L/min nasal cannula Daljit Holland RN 02:04 PM Versed 1 mg Intravenous Daljit Holland RN 02:05 PM Fentanyl 50 mcg Intravenous Daljit Holland RN 02:11 PM Lidocaine 2% 10 ml Subcutaneous Bronson Lopez MD 02:28 PM Heparin 1000 units Intravenous Daljit Holland RN 02:10 PM Versed 1 mg Intravenous Daljit Holland RN 02:10 PM Fentanyl 50 mcg Intravenous Daljit Holland RN ASA Classification: CLASS II- Mild systemic disease (i.e. well-controlled diabetes, hypertension, asthma, cigarette smoking) Rosio Score Preprocedure Postprocedure Activity 2- Moves 4 extremities sustained head lift Activity 2- Moves 4 extremities sustained head lift Circulation 2- SBP +/= 20 points of pre-anesthetic level Circulation 2- SBP +/= 20 points of pre-anesthetic level Consciousness 2- Awake and alert oriented x 3 Consciousness 2- Awake and alert oriented x 3 O2 Saturation 2- Able to maintain O2 satruation of 92% on room air O2 Saturation 2- Able to maintain O2 satruation of 92% on room air Respiratory 2- Able to deep breathe and cough well Respiratory 2- Able to deep breathe and cough well Total Score 10 Total Score 10 Contrast Agent: Isovue Diagnostic Contrast: 92 ml Total Contrast: 92 ml Fluoro Dose: 1592 mGy Procedure Log Time Note Enter By 01:53 PM Pt arrived to flue dust laborer 2 at 13:52 twilson 01:53 PM Patient charges- Angio tray pack, Navilyst 3mm J, Pulse Oximetry and ACIST tubing and transducer twilson 01:54 PM Physician arrived 13:54 twilson 01:58 PM CathStat 01:59 PM Huan Malone RN Position: Monitor Time in: 13:59 :59 PM Meet and greet completed :59 PM Sign in performed according to hospital policy. tw:59 PM Procedure start 13:59 twilson 01:59 PM [place] Ramesh RN Position: Photographic Spotter Time in: 13:59 twilson 01:59 PM Daljit Holland RN Position: Photographic Spotter Time in: 13:59 twilson :59 PM Kallner, Selene RT Position: Scrub Time in: 13:59 twilson 02: PM Time: 14:03 Patient comfortable and pain free: Yes : PM Time: 14:03LOC: 5 = Fully awake and oriented or at pre-proc level twilson : PM Clinical Presentation: Unstable angina twilson : PM Vitals capture started with the following parameters, Patient=Adult, Interval=5 min, Initial Knsqzxax=637 mmHg, Deflation Rate=5 mmHg, Cuff placed on Right Arm 02:04 PM Time: 14:04 Oxygen on at 2 L/min per nasal cannula by Daljit Holland RN twrufus 02:05 PM Time: 14:04 Versed 1 mg Intravenous Given by Daljit Holland RN 02:05 PM Time: 14:05 Fentanyl 50 mcg Intravenous Given by Daljit Holland RN 02:06 PM Recorded ECG: HR=68 Condition=Condition 1 02:06 PM HR=69 bpm, BSYC=859/89 mmhg, SpO2=99.0 % 02:08 PM Pressure channel 1 zeroed. 02:09 PM Time out performed according to hospital policy twilson 02:10 PM Time: 14:10 Fentanyl 50 mcg Intravenous Given by Daljit Holland RN twilson 02:10 PM HR=61 bpm, DJXV=298/86 mmhg, SpO2=99.0 %, Comment=nsr 02:10 PM ASA Class CLASS II- Mild systemic disease (i.e. well-controlled diabetes, hypertension, asthma, cigarette smoking) twilson 02:10 PM Time: 14:10 Versed 1 mg Intravenous Given by Daljit Holland RN twrufus 02:11 PM Time: 14:11 10 ml Lidocaine 2% to right groin Subcutaneous Given by Bronson Lopez MD twilson 02:12 PM Micro-Introducer Kit utilized for sheath placement twilson 02:12 PM 3ml contrast hand injected to right groin, images obtained. twilson 02:13 PM Access obtained by percutaneous puncture. 6Fr 10cm Terumo [place] sheath placed in right Femoral artery. [id number] twilson 02:14 PM 5Fr FR 4 catheter inserted over the wire DNC twilson 02:15 PM HR=65 bpm, PGPU=710/75 mmhg, SpO2=94.0 %, Comment=nsr 02:15 PM RCA angiography performed in multiple views. twilson 02:16 PM Wire removed twilson 02:16 PM 0.035 260cm Navilyst 3mmJ wire [id number] twilson 02:18 PM 5Fr FL 4 catheter inserted over the wire DNC twilson 02:18 PM LCA angiography performed in multiple views. tw:19 PM Time: 14:03LOC: 4 = Oriented but drowsy twilson 02:19 PM Time: 14:03 Patient comfortable and pain free: Yes twilson 02:19 PM Recorded Pressure: Ao, HR=73, Condition=Condition 1 (Aorta) Ao 124/73/96 02:20 PM HR=73 bpm, HWRE=844/74 mmhg, SpO2=92.0 %, Comment=nsr 02:22 PM Catheter removed twilson 02:23 PM 5Fr Pigtail catheter inserted over the wire DN twilson 02:25 PM Catheter removed twilson 02:25 PM HR=79 bpm, JZUY=558/70 mmhg, SpO2=93.0 %, Comment=nsr 02:25 PM Re-inserted FR4. twilson 02:28 PM Time: 14:28 Heparin 1000 units Intravenous Given by Daljit Holland RN twilson 02:30 PM Catheter removed twilson 02:30 PM HR=70 bpm, WMNI=117/82 mmhg, SpO2=96.0 %, Comment=nsr 02:31 PM 5Fr Pigtail catheter inserted over the wire DN twilson 02:31 PM Recorded Pressure: LV, HR=73, Condition=Condition 1 (Left Ventricle) LV 129/11/10 02:32 PM Recorded Pressure: LV, Ao, HR=72, Condition=Condition 1 (Left Ventricle) LV 143/14/16, (Aorta) Ao 129/73/101 02:32 PM Catheter selectively placed in left ventricle twilson 02:32 PM Pressures obtained in LV twilson 02:33 PM Abdominal aortigram performed twilson 02:34 PM Catheter removed twilson 02:34 PM Time: 14:19LOC: 4 = Oriented but drowsy twilson 02:35 PM HR=67 bpm, EZYU=000/82 mmhg, SpO2=98.0 %, Comment=nsr 02:35 PM Coronary Dominance: right twilson 02:36 PM Lesion found in Proximal LAD. Pre Stenosis: 50 Pre CURTIS Flow: twilson 02:37 PM Lesion found in Distal Circumflex. Pre Stenosis: 99 Pre CURTIS Flow: twilson 02:37 PM Proximal Left Anterior Descending Coronary Artery with 50% stenosis. If graft is supplying this territory, 0 % stenosis. twilson 02:37 PM Circumflex, Obtuse Marginal, Left Posterior Descending, and Left Posterolateral Coronary Arteries with 99 % stenosis. If graft is supplying this area, 0 % stenosis twilson 02:37 PM Procedure completed at 14:37 twilson 02:37 PM Did you address CURTIS flow and Dominance? Yes twilson 02:38 PM Sign out completed: Radiation Dose 1592 mGy Fluoro Time: 8.0 Isovue 370 - 200ml contrast 92 ml given by Bronson Lopez MD. Complications: NoneCardiac Rehab Consult needed: NoConfirmed administered medications: Yes twilson 02:38 PM Isovue 370 - 200ml,1 Bottle(s) used. twilson 02:38 PM Arterial sheath pulled, Mynx closure device used and was Successful [id number] S/N. twilson 02:38 PM Estimated Blood Loss: less than 20cc twilson 02:38 PM Post ECG NSR twilson 02:38 PM Post Blood Pressure 151/82 twilson 02:39 PM Information taught Cardiac Cath and Mynx twilson 02:39 PM Education needs Procedure, Plan of Care, and Responsibilities of Patient in Care twilson 02:39 PM Learning barriers :None twilson 02:39 PM Education Methods Verbal twilson 02:39 PM Education evaluation Able to repeat information twilson 02:39 PM Site status No bleeding/hematoma - Rt Groin as reported by Selene Castro RT at 14:39 twilson 02:39 PM Plavix, Effient or Brilinta given No twilson 02:40 PM HR=65 bpm, QNYG=591/84 mmhg, EfC9=855.0 %, Comment=nsr 02:41 PM 14:41 Post Pulses Bilateral DP & PT 2+ twilson 02:41 PM No family present with patient twilson 02:41 PM Complications: None twilson 02:41 PM Fluoro Time: 8 twilson 02:41 PM Isovue 370 - 200ml contrast 92 ml given by Bronson Lopez. twilson 02:41 PM Radiation Dose 1592 mGy twilson 02:42 PM Opsite applied twilson 02:45 PM Patient out of room: 14:45 twilson 02:46 PM Report given to 3B RN Pt taken to 3B Room #46. 14:45 twilson Complications Complication None None Hemodynamics Pressures Site Systolic/A Wave Diastolic/V Wave Mean AO 124 73 96 LV 129 11 10 LV 143 14 16 AO 129 73 101 Post Procedure Information Blood Pressure: 151/82 mmHg Rhythm: NSR Post procedural instructions were given Closure Device Time Device Success/Fail 07/17/2017 2:43:00 PM MynxGrip Successful Site Checks Time Location Status Staff Sheath In? Note 02:39 PM Rt Groin No bleeding/hematoma Selene Castro RT Pulses Time Site Pre-Procedure Post-Procedure Note Bilateral DP & PT 2+ Bilateral radial 2+ 2:41:00 PM Bilateral DP & PT 2+ Updated by Estefany Brar RT (R) on 07/17/2017 2:51:09 PM electronically signed on 07/17/2017 2:51:43 PM with status of Final
--- NOTE | 2017-07-17 15:02 | Invasive Diagnostic Lab Proc ---
Name: Schuyler Vail Date of Study: 07/17/2017 Date: 1945 Ht: 68.1in Medical Record#: [id number] Age: 71 Wt: 270.07lb Gender: Male BSA: 2.32 Order #: [id number] BMI: 40.93 Physicians Procedure Physician: Bronson Lopez MD Referring MD: Referring MD: Staff Name Position Time In [place] Ramesh RN Region Manager 01:59 PM Daljit Holland RN Monitor 01:59 PM Selene Castro RT Scrub 01:59 PM Huan Malone RN Monitor 01:59 PM Indications Indication Abnormal Test - Stress Procedures Performed Procedure L HRT ARTERY/VENTRICLE ANGIO AORTOGRAPHY, ABDOMINAL S&I Pre-Procedure Checklist Informed consent is complete signed and on chart. H&P is on chart. ID band is on and ID verified with patient. Patient NPO for procedure The procedure was described for the patient and questions were answered. ECG is on chart. Plan of Care Patient will tolerate the procedure without complications. Adequate level of comfort will be maintained. Hemodynamics will remain stable Patient will recover from procedure without complications. Respiratory function will be maintained. Cardiac rhythm will remain stable. Patient temperature will be maintained. Patient and/or family have verbalized understanding of the procedure. Patient Education Chief Complaint/Reason for Test: Cardiac Cath Developmental Category: Geriatric (65+ years) Developmentally Appropriate for Age: Yes Learning Barriers: None Education Needs: Procedure Education Method: Verbal Information Taught: Cardiac Cath Educational Evaluation: Able to repeat information Intravenous Access Time IV Size Location DC'd Fluid/Drip Rate Units RN 18g 1 04/11" Patent On Arrival Rt Antecubital Allergies amlodipine most pain medication Tuoitvx-Voa-Hbr Reductase Inhibitor water pills JESSICA Inhibitor lisinopril losartan Vital Signs Time BP (mmHg) HR (bpm) O2 Sat. RR (bpm) LOC 02:03 PM / % 5 = Fully awake and oriented or at pre-proc level 02:03 PM / % 4 = Oriented but drowsy 02:19 PM / % 4 = Oriented but drowsy 02:06 PM 164 / 89 69 99 % 02:10 PM 158 / 86 61 99 % 02:15 PM 147 / 75 65 94 % 02:20 PM 141 / 74 73 92 % 02:25 PM 124 / 70 79 93 % 02:30 PM 145 / 82 70 96 % 02:35 PM 151 / 82 67 98 % 02:40 PM 155 / 84 65 100 % Procedural Medications Time Medication Dose Units Method Given By 02:04 PM Oxygen 2 L/min nasal cannula Daljit Holland RN 02:04 PM Versed 1 mg Intravenous Daljit Holland RN 02:05 PM Fentanyl 50 mcg Intravenous Daljit Holland RN 02:11 PM Lidocaine 2% 10 ml Subcutaneous Bronson Lopez MD 02:28 PM Heparin 1000 units Intravenous Daljit Holland RN 02:10 PM Versed 1 mg Intravenous Daljit Holland RN 02:10 PM Fentanyl 50 mcg Intravenous Daljit Holland RN ASA Classification: CLASS II- Mild systemic disease (i.e. well-controlled diabetes, hypertension, asthma, cigarette smoking) Rosio Score Preprocedure Postprocedure Activity 2- Moves 4 extremities sustained head lift Activity 2- Moves 4 extremities sustained head lift Circulation 2- SBP +/= 20 points of pre-anesthetic level Circulation 2- SBP +/= 20 points of pre-anesthetic level Consciousness 2- Awake and alert oriented x 3 Consciousness 2- Awake and alert oriented x 3 O2 Saturation 2- Able to maintain O2 satruation of 92% on room air O2 Saturation 2- Able to maintain O2 satruation of 92% on room air Respiratory 2- Able to deep breathe and cough well Respiratory 2- Able to deep breathe and cough well Total Score 10 Total Score 10 Contrast Agent: Isovue Diagnostic Contrast: 92 ml Total Contrast: 92 ml Fluoro Dose: 1592 mGy Procedure Log Time Note Enter By 01:53 PM Pt arrived to medical lab technologist 2 at 13:52 twilson 01:53 PM Patient charges- Angio tray pack, Navilyst 3mm J, Pulse Oximetry and ACIST tubing and transducer twilson 01:54 PM Physician arrived 13:54 twilson 01:58 PM CathStat 01:59 PM Huan Malnoe RN Position: Monitor Time in: 13:59 :59 PM Meet and greet completed :59 PM Sign in performed according to hospital policy. tw:59 PM Procedure start 13:59 twilson 01:59 PM [place] Ramesh RN Position: Region Manager Time in: 13:59 twilson 01:59 PM Daljit Holland RN Position: Region Manager Time in: 13:59 twilson :59 PM Kallner, Selene RT Position: Scrub Time in: 13:59 twilson 02: PM Time: 14:03 Patient comfortable and pain free: Yes : PM Time: 14:03LOC: 5 = Fully awake and oriented or at pre-proc level twilson : PM Clinical Presentation: Unstable angina twilson : PM Vitals capture started with the following parameters, Patient=Adult, Interval=5 min, Initial Vrjxwrxg=592 mmHg, Deflation Rate=5 mmHg, Cuff placed on Right Arm 02:04 PM Time: 14:04 Oxygen on at 2 L/min per nasal cannula by Daljit Holland RN twrufus 02:05 PM Time: 14:04 Versed 1 mg Intravenous Given by Daljit Holland RN 02:05 PM Time: 14:05 Fentanyl 50 mcg Intravenous Given by Daljit Holland RN 02:06 PM Recorded ECG: HR=68 Condition=Condition 1 02:06 PM HR=69 bpm, HZHS=821/89 mmhg, SpO2=99.0 % 02:08 PM Pressure channel 1 zeroed. 02:09 PM Time out performed according to hospital policy twilson 02:10 PM Time: 14:10 Fentanyl 50 mcg Intravenous Given by Daljit Holland RN twilson 02:10 PM HR=61 bpm, OPIC=817/86 mmhg, SpO2=99.0 %, Comment=nsr 02:10 PM ASA Class CLASS II- Mild systemic disease (i.e. well-controlled diabetes, hypertension, asthma, cigarette smoking) twilson 02:10 PM Time: 14:10 Versed 1 mg Intravenous Given by Daljit Holland RN twrufus 02:11 PM Time: 14:11 10 ml Lidocaine 2% to right groin Subcutaneous Given by Bronson Lopez MD twilson 02:12 PM Micro-Introducer Kit utilized for sheath placement twilson 02:12 PM 3ml contrast hand injected to right groin, images obtained. twilson 02:13 PM Access obtained by percutaneous puncture. 6Fr 10cm Terumo Tower sheath placed in right Femoral artery. [id number] twilson 02:14 PM 5Fr FR 4 catheter inserted over the wire DNC twilson 02:15 PM HR=65 bpm, FWSY=105/75 mmhg, SpO2=94.0 %, Comment=nsr 02:15 PM RCA angiography performed in multiple views. twilson 02:16 PM Wire removed twilson 02:16 PM 0.035 260cm Navilyst 3mmJ wire [id number] twilson 02:18 PM 5Fr FL 4 catheter inserted over the wire DNC twilson 02:18 PM LCA angiography performed in multiple views. tw:19 PM Time: 14:03LOC: 4 = Oriented but drowsy twilson 02:19 PM Time: 14:03 Patient comfortable and pain free: Yes twilson 02:19 PM Recorded Pressure: Ao, HR=73, Condition=Condition 1 (Aorta) Ao 124/73/96 02:20 PM HR=73 bpm, QANE=120/74 mmhg, SpO2=92.0 %, Comment=nsr 02:22 PM Catheter removed twilson 02:23 PM 5Fr Pigtail catheter inserted over the wire DN twilson 02:25 PM Catheter removed twilson 02:25 PM HR=79 bpm, RWBC=958/70 mmhg, SpO2=93.0 %, Comment=nsr 02:25 PM Re-inserted FR4. twilson 02:28 PM Time: 14:28 Heparin 1000 units Intravenous Given by Daljit Holland RN twilson 02:30 PM Catheter removed twilson 02:30 PM HR=70 bpm, AKPE=924/82 mmhg, SpO2=96.0 %, Comment=nsr 02:31 PM 5Fr Pigtail catheter inserted over the wire DN twilson 02:31 PM Recorded Pressure: LV, HR=73, Condition=Condition 1 (Left Ventricle) LV 129/11/10 02:32 PM Recorded Pressure: LV, Ao, HR=72, Condition=Condition 1 (Left Ventricle) LV 143/14/16, (Aorta) Ao 129/73/101 02:32 PM Catheter selectively placed in left ventricle twilson 02:32 PM Pressures obtained in LV twilson 02:33 PM Abdominal aortigram performed twilson 02:34 PM Catheter removed twilson 02:34 PM Time: 14:19LOC: 4 = Oriented but drowsy twilson 02:35 PM HR=67 bpm, FGQJ=309/82 mmhg, SpO2=98.0 %, Comment=nsr 02:35 PM Coronary Dominance: right twilson 02:36 PM Lesion found in Proximal LAD. Pre Stenosis: 50 Pre CURTIS Flow: twilson 02:37 PM Lesion found in Distal Circumflex. Pre Stenosis: 99 Pre CURTIS Flow: twilson 02:37 PM Proximal Left Anterior Descending Coronary Artery with 50% stenosis. If graft is supplying this territory, 0 % stenosis. twilson 02:37 PM Circumflex, Obtuse Marginal, Left Posterior Descending, and Left Posterolateral Coronary Arteries with 99 % stenosis. If graft is supplying this area, 0 % stenosis twilson 02:37 PM Procedure completed at 14:37 twilson 02:37 PM Did you address CURTIS flow and Dominance? Yes twilson 02:38 PM Sign out completed: Radiation Dose 1592 mGy Fluoro Time: 8.0 Isovue 370 - 200ml contrast 92 ml given by Bronson Lopez MD. Complications: NoneCardiac Rehab Consult needed: NoConfirmed administered medications: Yes twilson 02:38 PM Isovue 370 - 200ml,1 Bottle(s) used. twilson 02:38 PM Arterial sheath pulled, Mynx closure device used and was Successful [id number] S/N. twilson 02:38 PM Estimated Blood Loss: less than 20cc twilson 02:38 PM Post ECG NSR twilson 02:38 PM Post Blood Pressure 151/82 twilson 02:39 PM Information taught Cardiac Cath and Mynx twilson 02:39 PM Education needs Procedure, Plan of Care, and Responsibilities of Patient in Care twilson 02:39 PM Learning barriers :None twilson 02:39 PM Education Methods Verbal twilson 02:39 PM Education evaluation Able to repeat information twilson 02:39 PM Site status No bleeding/hematoma - Rt Groin as reported by Selene Castro RT at 14:39 twilson 02:39 PM Plavix, Effient or Brilinta given No twilson 02:40 PM HR=65 bpm, XHCH=766/84 mmhg, WyA5=075.0 %, Comment=nsr 02:41 PM 14:41 Post Pulses Bilateral DP & PT 2+ twilson 02:41 PM No family present with patient twilson 02:41 PM Complications: None twilson 02:41 PM Fluoro Time: 8 twilson 02:41 PM Isovue 370 - 200ml contrast 92 ml given by Bronson Lopez. twilson 02:41 PM Radiation Dose 1592 mGy twilson 02:42 PM Opsite applied twilson 02:45 PM Patient out of room: 14:45 twilson 02:46 PM Report given to 3B RN Pt taken to 3B Room #46. 14:45 twilson 02:54 PM Lesion found in Proximal Circumflex. Pre Stenosis: 25 Pre CURTIS Flow: twilson 02:54 PM Lesion found in Mid Circumflex. Pre Stenosis: 50 Pre CURTIS Flow: twilson Complications Complication None None Hemodynamics Pressures Site Systolic/A Wave Diastolic/V Wave Mean AO 124 73 96 LV 129 11 10 LV 143 14 16 AO 129 73 101 Post Procedure Information Blood Pressure: 151/82 mmHg Rhythm: NSR Post procedural instructions were given Closure Device Time Device Success/Fail 07/17/2017 2:43:00 PM MynxGrip Successful Site Checks Time Location Status Staff Sheath In? Note 02:39 PM Rt Groin No bleeding/hematoma Selene Castro RT Pulses Time Site Pre-Procedure Post-Procedure Note Bilateral DP & PT 2+ Bilateral radial 2+ 2:41:00 PM Bilateral DP & PT 2+ Updated by Estefany Brar, RT (R) on 07/17/2017 2:55:54 PM electronically signed on 07/17/2017 2:56:25 PM with status of Final
--- NOTE | 2017-07-17 15:12 | Pre-Sedation Evaluation ---
Pre-sedation evaluation - Pre-sedation checklist Date of procedure: 07/17/17 Procedure: left heart cath Recent Vitals: Last Vital Signs Temp 98.2 F 07/17/17 11:20 Pulse 64 07/17/17 11:20 Resp 14 07/17/17 11:20 BP 119/77 07/17/17 11:20 Pulse Ox 97 07/17/17 11:20 H&P (including ROS) documented in medical record: Yes Previous reaction to sedatives/anesthetics: No Dietary Status: No solid food in preceding 4 hrs and no liquid in preceding 2 hrs Dentition: dentures removed ASA Classification *see protocol: CLASS II-Mild systemic disease
--- NOTE | 2017-07-17 15:33 | Event Note ---
Date of Encounter: 07/17/17 Time of Encounter: 15:29 - Cardiology Event Note C completed. No intervention. Stable CAD. there was 90% stenosis in small OM. Continue medical management. He is intolerant to multiple medications due to side effects. Continue asa, statin, and bb. Continue cardura and HCTZ. Discussed with Dr. Bird, start imdur for chest pain. Out-pt f/u with Dr. Hopkins in 2-3 weeks. Cardiology will sign off. Call with questions.
[2017-07-17] MEDS: Aspirin Enteric Coated 81 MG Tablet PO SCH (17:05)
[2017-07-17] MEDS: Metoprolol XL (24 HR) Succ 50 MG TAB.ER.24H PO SCH (17:05)
[2017-07-17] MEDS: Isosorbide MONOnitrate (24 HR) 30 MG TAB.ER.24H PO SCH (17:05)
[2017-07-18 07:20] LABS: Basophils % 0.4 %; Eosinophils # 0.3 K/mcL (0.0-0.6); Eosinophils % 3.5 %; Hematocrit 40.3 % (37.5-50.1); Hemoglobin 13.5 g/dL (12.9-16.9); Immature Granulocytes % 0.3 % (0-4); Lymphocytes # 1.2 K/mcL (0.6-4.6); Mean Corpuscular HGB Conc 33.5 g/dL (31.6-35.5); Mean Corpuscular Hemoglobin 30.3 pg (28.0-33.3); Mean Corpuscular Volume 90.6 fL (83.0-100.0); Mean Platelet Volume 10.6 fL (9.4-12.4); Monocytes # 0.7 K/mcL (0.0-1.3); Monocytes % 8.7 %; Neutrophils # 5.7 K/mcL (1.6-8.9); Platelet Count 137 K/mcL (140-400); Red Blood Count 4.45 M/mcL (4.19-5.50); Red Cell Distribution Width 12.5 % (11.5-14.5); Segmented Neutrophils % 72.1 %
[2017-07-18 07:36] LABS: BUN/Creatinine Ratio 15 (6-26); Blood Urea Nitrogen 17 mg/dL (8-23); Calcium 8.8 mg/dL (8.6-10.3); Carbon Dioxide 28 mEq/L (23-29); Chloride 106 mEq/L (98-107); Chol/HDL Ratio 6.6 (0-4.9); Cholesterol 197 mg/dL (< 200); Glucose 107 mg/dL (70-105); HDL Cholesterol 30 mg/dL (40-59); LDL Cholesterol,Calculated 141 mg/dL (0-99); Osmolality,Calculated 288 (280-300); Sodium 138 mEq/L (136-145); Triglycerides 128 mg/dL (< 150); eGFR For African Americans > 60 (> 60); eGFR For Non-African Americans > 60 (> 60)
[2017-07-18] MEDS: Cyanocobalamin (B-12) 1,000 MCG TABLET PO SCH (08:19)
[2017-07-18] MEDS: Lisinopril 20 MG TABLET PO SCH (08:19)
[2017-07-18] MEDS: Isosorbide MONOnitrate (24 HR) 30 MG TAB.ER.24H PO SCH (08:19)
--- NOTE | 2017-07-18 09:56 | Discharge Summary ---
Date of Encounter: 07/18/17 Time of Encounter: 09:54 - Discharge Diagnosis (1) Abnormal stress test Priority: Primary Status: Acute Comments: Underwent a LHC without any complications no stent was placed cardiology recommending to continue aspirin and beta brandon continue Cardura and hydrochlorothiazide we will initiate on Imdur for chest pain as recommended by cardiology patient will follow-up with Dr. Hopkins 2-3 weeks (2) Chest pain Priority: Primary Status: Acute Comments: Patient underwent a LHC see above Qualifiers: Chest pain type: unspecified Qualified Code(s): R07.9 - Chest pain, unspecified (3) AAA (abdominal aortic aneurysm) Priority: Secondary Status: Chronic Comments: Patient states he is seen by Dr. Dale-advised to follow-up as outpatient- according to patient he is waiting for graft placement. Qualifiers: Presence of rupture: without rupture Qualified Code(s): I71.4 - Abdominal aortic aneurysm, without rupture (4) CAD (coronary artery disease) Priority: Secondary Status: Chronic Comments: Continue with aspirin and beta brandon Imdur follow-up with cardiology in 2-3 weeks Qualifiers: Coronary Disease-Associated Artery/Lesion type: [place] artery [place] vs. transplanted heart: [place] heart Associated angina: with other forms of angina Qualified Code(s): I25.118 - Atherosclerotic heart disease of [place] coronary artery with other forms of angina pectoris (5) HLD (hyperlipidemia) Priority: Secondary Status: Chronic Comments: Patient is allergic to statin Qualifiers: Hyperlipidemia type: pure hypercholesterolemia Qualified Code(s): E78.00 - Pure hypercholesterolemia, unspecified; E78.0 - Pure hypercholesterolemia (6) HTN (hypertension) Priority: Secondary Status: Chronic Qualifiers: Hypertension type: essential hypertension Qualified Code(s): I10 - Essential (primary) hypertension Hospital course: Mr. Vail is a 71 year old male past medical history of moderate nonobstructive CAD hypertension hyperlipidemia diabetes type 2 AAA measuring 4.9 cm (which is being monitored by vascular) presented with recurrent midsternal chest pressure which occurred every 3 days and at rest. 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 These were new changes compared to stress test completed and July 2016. Cardiology was consulted and patient underwent a LHC and tolerated the procedure well he went through recovery without any complications. He has been hemodynamically stable post procedure with no active bleeding or chest pain. Lab work has been stable and he is ready for discharge. I did advise patient to follow-up with primary care physician in one week since this provider knows him best and can adjust medications accordingly. I also advised the patient follow up with cardiology in 2-3 weeks per the recommendation. I reviewed new Medications and advised patient to take medications as prescribed. I answered patient's questions to the best my ability. Patient is ready for discharge. Discharge discussed with: patient - Time Spent with Patient Total time spent providing and/or coordinating discharge services: - Discharge Medications Prescriptions: Isosorbide MONOnitrate (24 HR) [Imdur] 30 mg PO DAILY #30 tab.er.24h Home Medications: Aspirin Enteric Coated [Aspirin EC] 81 mg PO QPM 01/01/15 [History] Metoprolol Succinate 100 mg PO QPM 03/09/16 [History] hydroCHLOROthiazide [Hydrochlorothiazide] 25 mg PO DAILY PRN 12/27/16 [History] Cyanocobalamin (Vitamin B-12) [Vitamin B12] 1,000 mcg PO QAM 07/15/17 [History] Doxazosin Mesylate [Cardura] 8 mg PO QPM 07/15/17 [History] Lisinopril [Zestril] 40 mg PO QAM 07/15/17 [History] Ubidecarenone [Co Q-10] 200 mg PO QAM 07/15/17 [History] Isosorbide MONOnitrate (24 HR) [Imdur] 30 mg PO DAILY #30 tab.er.24h 07/18/17 [ Rx] Allergies/Adverse Reactions: 3 Allergy/AdvReac Type Severity Reaction Status Date / Time losartan Allergy See Verified 06/14/17 15:15 Comments amlodipine [From Norvasc] AdvReac Palpitation Verified 06/14/17 15:15 s Wmlqmus-Aii-Kgn Reductase AdvReac Muscle Pain Verified 06/14/17 15:15 Inhibitor [Statins] most pain medication AdvReac Dizziness Uncoded 06/14/17 15:15 water pills AdvReac See Uncoded 06/14/17 15:15 Comments Date of admission: 07/17/17 13:05 Primary care physician: Mack Briones MD Discharging clinician: Jenny Ellis Anticipated date of discharge: 07/18/17 - Constitutional Vitals: Temp Pulse Resp BP Pulse Ox 97.8 F 80 14 126/62 95 07/18/17 07:05 07/18/17 07:05 07/18/17 07:05 07/18/17 07:05 07/18/17 07:05 General appearance: Present: A&O X 3 - Head Head exam: Present: atraumatic, normocephalic - Eye Eye exam: Present: PERRL, conjuntiva pink, sclera anicteric Pupils: Present: PERRL - Neck Neck exam general surgery: Present: supple, trachea midline. Absent: lymphadenopathy - Respiratory Respiratory exam: Present: CTAB. Absent: accessory muscle use, rales, rhonchi, wheezes - Cardiovascular Cardiovascular exam: Present: RRR, +S1, +S2. Absent: diastolic murmur, gallop, rubs, systolic murmur - GI/Abdominal GI/Abdominal exam: Present: normal bowel sounds, soft, no peritoneal signs. Absent: distended, tenderness - Extremities Exam Extremities exam: Present: warm, radial pulses palpable and symmetrical. Absent : calf tenderness, cyanotic, pedal edema - Neurological Exam Neurological exam: Present: CN II-XII intact, oriented X3, no focal deficits. Absent: pronater drift, facial droop, speech deficit - Skin Skin exam: Present: dry, intact - Patient Status Disposition: Home, Self-Care Condition: Good - Discharge Instructions Instructions: Chest Pain (DC) Follow Up With: Mack Briones MD [Primary Care Provider] - 07/25/17 2:15 pm Shine Hopkins DO [Partnered Physician] - Additional Instructions: RISK FACTORS: STOP SMOKING: If you smoke, STOP. Smoking or tobacco use significantly increases your risk of heart disease because nicotine causes the arteries to narrow or constrict. It also causes fats to stick to the artery. Your chances of having a heart attack are greatly increased if you continue to smoke. For more information, call the education line for smoking cessation 3-528-WYRXKDP EAT A LOW FAT/CHOLESTEROL/SODIUM DIET: This diet may help reduce your chances of having a heart attack. LIFTING: Avoid lifting anything more than 10 pounds for 5-7 days Prior to straining, laughing, sneezing and/or coughing, apply manual pressure directly over insertion site. ACTIVITY: You may walk or climb stairs as tolerated You can resume sexual activity as tolerated In general, you are encouraged to engage in a minimum of 30 minutes or more of moderate intensity physical activity, such as brisk walking, daily or at least 3 -4 times weekly BATHING Do not submerge the site into water (bath tub, hot tub, swimming pool) for 1 week. This can be a source for infection into the blood stream. You may shower after 24 hours SITE CARE: After 24 hours, you may remove the dressing and leave the site open to air. Keep the site clean and dry. Clean gently and pat dry. You can expect bruising and tenderness that gradually resolve within a week or two. Return to work as instructed per your physician Resume driving as instructed per physician Keep all scheduled follow up appointments Resume medications as instructed IMPORTANT: If prescribed a Platelet Aggregation Inhibitor such as, Plavix, Brilinta or Effient: Duration of therapy is minimum one year These medications are often used in combination with Aspirin in prevention of future heart attacks Never discontinue unless consult with your Loan Processing Supervisor STROKE (CVA) Risk factors for a stroke are: Age, cigarette smoking, diabetes, excessive alcohol consumption, family history, high blood pressure, overweight, physical inactivity, prior stroke, heart attack, diagnosis of carotid artery stenosis or other artery disease. Warning signs: Sudden numbness or weakness of the face, arm or leg; especially on one side of the body, sudden confusion, trouble speaking or understanding, sudden trouble seeing in one or both eyes, sudden trouble walking, dizziness, loss of balance or coordination, sudden severe headache with no cause. Call 911 or go to the Emergency Room. CONGESTIVE HEART FAILURE: If you have been diagnosed with Congestive Heart Failure (CHF) and your symptoms return, make an appointment with your physician Weigh yourself daily. Notify your physician if you have a weight gain of two or more pounds in one day or five or more pounds in one week. If you experience any difficulty breathing, please call 911 BLEEDING: Although the risk of bleeding is minimal, it can happen. If you have any bleeding from the site, apply firm pressure above the puncture site for 10-15 minutes. If the bleeding does not stop, continue manual pressure and call 911 Contact your physician if: You develop a fever greater than 101 degrees Fahrenheit Your site becomes reddened or has any drainage You have an increase in pain or burning at the site or if a large knot forms at the site. If you experience chest pain, shortness of breath, dizziness, or extreme tiredness, stop the activity and rest. Please notify your physicians office if you experience any of these symptoms and they are not relieved by rest please call 911! - Diet and Activity Activity: increase activity as tolerated Diet: low fat, low cholesterol, low salt diet
[2017-07-18 10:50] VITALS: BP 103/68
== END 2017-07-18 11:08 | disposition home or self-care (01) | DRG 287 ==
LOC: EMEROO 12:23 → 3BNU 12:23
PROVIDERS: ADMIT Internal Medicine Cardiovascular Disease; ATTEND Registered Nurse

== ENCOUNTER 2017-12-14 18:50 | Observation (INO) ==
[2017-12-14] MEDS ORDERED: *HR* Metoprolol 5 MG/5 ML VIAL IVP ONE (19:04)
--- NOTE | 2017-12-14 19:08 | Emergency Department Note ---
Disposition Clinical Impression: Chest pain Qualifiers: Chest pain type: unspecified Qualified Code(s): R07.9 - Chest pain, unspecified Hypertension Qualifiers: Hypertension type: unspecified Qualified Code(s): I10 - Essential (primary) hypertension Disposition: Admitted As Inpatient Condition: Fair Forms: ED Satisfaction Letter Chest Pain HPI - General Chief Complaint: ED Chest Pain Stated Complaint: chest pain Time Seen by Provider: 12/14/17 18:57 Source: patient Limitations: no limitations Vital Signs Reviewed: Yes Nursing Notes Reviewed: Yes - History of Present Illness HPI Narrative: 72-year-old male presents emergency Department chief complaint of chest pain. Patient states he had several episodes couple of days ago while he was doing some work. But today it occurred at rest. Pain is a pressure sensation in the middle of his chest. Nonradiating. Associated with hypertension. He said he did take his normal high. medicines today he said but it is not really resolved. Patient is a history of chronic headaches which of arty been worked up. He denies nausea vomiting or diarrhea. He declined nitroglycerin saying that it makes him really dizzy like he is going to pass out and follow her. He wants us to try and correct his blood pressure. Patient states that the pain has been somewhat continuous since this morning but definitely has waxed and waned. Patient has history of [place] with stent placement. Pt complaint: chest pain Onset (ago): hour(s) Duration: constant Onset: during rest Pain Location: substernal Severity: moderate Severity scale (1-10): 5 Quality: tightness Pain Radiation: none Improves with: nothing Worsens with: nothing Context: recent illness Treatments prior to arrival chest pain: aspirin, other (Antihypertensives) - Related Data Home Medications Medication Instructions Recorded Confirmed Aspirin Enteric Coated [Aspirin EC] 81 mg PO QPM 01/01/15 07/15/17 Metoprolol Succinate 100 mg PO QPM 03/09/16 07/15/17 hydroCHLOROthiazide 25 mg PO DAILY PRN 12/27/16 07/15/17 [Hydrochlorothiazide] Cyanocobalamin (Vitamin B-12) 1,000 mcg PO QAM 07/15/17 07/15/17 [Vitamin B12] Lisinopril [Zestril] 40 mg PO QAM 07/15/17 07/15/17 Previous Rx's Medication Instructions Recorded Betamethasone Dianna 0.1% Crm 1 appl TP BID PRN #1 tube 10/03/17 [Valisone 0.1%] Allergies Allergy/AdvReac Type Severity Reaction Status Date / Time losartan Allergy See Verified 10/03/17 13:27 Comments amlodipine [From Norvasc] AdvReac Palpitation Verified 10/03/17 13:27 s [id number] Reductase AdvReac Muscle Pain Verified 10/03/17 13:27 Inhibitor [Statins] most pain medication AdvReac Dizziness Uncoded 06/14/17 15:15 water pills AdvReac See Uncoded 06/14/17 15:15 Comments All systems ED: reviewed and negative except as stated. Constitutional: Reports: as per HPI Eyes: Reports: as per HPI ENT ED: Reports: as per HPI Cardiovascular: Reports: chest pain Respiratory: Reports: as per HPI Gastrointestinal: Reports: as per HPI Genitourinary: Reports: as per HPI Musculoskeletal: Reports: as per HPI Chest Pain PMH - Past Medical History Medical history: Reports: hypertension Surgical history: Reports: angioplasty/stent, herniorrhaphy, other Psychiatric history: Reports: no psych history - Social History Smoking Status: Never smoker Alcohol use: Reports: none Drug use: Reports: none Physical Exam - General Limitations: no limitations General appearance: alert, in no apparent distress - Head Head exam: atraumatic - Eye Eye exam: Present: normal appearance, PERRL - ENT ENT exam: normal exam, normal oropharynx - Neck Neck exam: Present: normal inspection - Chest Chest inspection: Present: normal inspection, symmetric chest wall rise - Respiratory Respiratory exam: Present: normal lung sounds bilaterally - Cardiovascular Cardiovascular exam: Present: regular rate, normal rhythm - Abdominal Exam Abdominal exam: Present: soft, Non-Tender - Extremities Exam Extremities exam: Present: normal inspection - Expanded Lower Extremity Exam Hip/Pelvis exam: Present: normal inspection - Neurological Exam Neurological exam: Present: alert, oriented X3 - Psychiatric Psychiatric exam: Present: normal affect, normal mood - Skin Skin exam: Present: warm, dry, intact Course Vital Signs Temperature 97.9 F 12/14/17 18:52 Pulse Rate 93 12/14/17 18:52 Respiratory Rate 22 12/14/17 18:52 Blood Pressure 213/122 12/14/17 18:52 O2 Sat by Pulse Oximetry 98 12/14/17 18:52 Temperature 97.9 F 12/14/17 19:08 Pulse Rate 63 12/14/17 19:51 Respiratory Rate 18 12/14/17 19:51 Blood Pressure 164/84 12/14/17 19:51 O2 Sat by Pulse Oximetry 96 12/14/17 19:51 Oxygen Delivery Oxygen Delivery Room Air Chest Pain - MDM Narrative Medical decision making narrative: We will the patient arrived he is significant hypertension but he had just taken metoprolol prior to coming in. As he continued through stay his blood pressure continued to improve we did order Lopressor which she declined because he said he wanted to get his blood pressure medicine time to work. He also declined nitroglycerin. He said it makes him too dizzy. He took aspirin at home. His workup was largely negative and EKG showed no acute ischemic changes was largely unchanged from prior. His pain resolved as his blood pressure improved. I spoke with the hospitalist at approximately 8:40 PM to arrange for admission for additional cardiac workup. He was hemodynamically stable at that time. - Medical Records Medical records reviewed: Yes I reviewed the patient's medical records. - Lab Data Lab results reviewed: Yes I reviewed the patient's lab results. Result diagrams: 12/14/17 19:35 12/14/17 19:35 Lab Results 12/14/17 12/14/17 12/14/17 Range/Units 19:35 19:35 19:35 WBC 6.9 (4.3-11.1) K/mcL RBC 4.75 (4.19-5.50) M/mcL Hgb 14.7 (12.9-16.9) g/dL Hct 43.6 (37.5-50.1) % MCV 91.8 (83.0-100.0) fL MCH 30.9 (28.0-33.3) pg MCHC 33.7 (31.6-35.5) g/dL RDW 12.2 (11.5-14.5) % Plt Count 145 (140-400) K/mcL MPV 10.2 (9.4-12.4) fL Immature Gran % 0.3 (0-4) % Seg Neutrophils % 65.0 % Lymphocytes % 20.8 % Monocytes % 9.2 % Eosinophils % 4.3 % Basophils % 0.4 % Neutrophils # 4.5 (1.6-8.9) K/mcL Lymphocytes # 1.4 (0.6-4.6) K/mcL Monocytes # 0.6 (0.0-1.3) K/mcL Eosinophils # 0.3 (0.0-0.6) K/mcL Basophils # 0.0 (0.0-0.2) K/mcL PT 10.2 (9.4-12.1) Seconds INR 0.9 APTT 28.8 (26.0-36.0) Seconds Sodium (136-145) mEq/L Potassium (3.5-5.1) mEq/L Chloride (98-107) mEq/L Carbon Dioxide (23-29) mEq/L BUN (8-23) mg/dL Creatinine (0.70-1.30) mg/dL Est GFR ( Amer) (> 60) Est GFR (Non-Af Amer) (> 60) BUN/Creatinine Ratio (6-26) Glucose (70-105) mg/dL Calculated Osmolality (280-300) Calcium (8.6-10.3) mg/dL Troponin I (< 0.04) ng/mL B-Natriuretic Peptide 93 (Less than 100) pg/mL 12/14/17 Range/Units 19:35 WBC (4.3-11.1) K/mcL RBC (4.19-5.50) M/mcL Hgb (12.9-16.9) g/dL Hct (37.5-50.1) % MCV (83.0-100.0) fL MCH (28.0-33.3) pg MCHC (31.6-35.5) g/dL RDW (11.5-14.5) % Plt Count (140-400) K/mcL MPV (9.4-12.4) fL Immature Gran % (0-4) % Seg Neutrophils % % Lymphocytes % % Monocytes % % Eosinophils % % Basophils % % Neutrophils # (1.6-8.9) K/mcL Lymphocytes # (0.6-4.6) K/mcL Monocytes # (0.0-1.3) K/mcL Eosinophils # (0.0-0.6) K/mcL Basophils # (0.0-0.2) K/mcL PT (9.4-12.1) Seconds INR APTT (26.0-36.0) Seconds Sodium 138 (136-145) mEq/L Potassium 4.0 (3.5-5.1) mEq/L Chloride 103 (98-107) mEq/L Carbon Dioxide 28 (23-29) mEq/L BUN 17 (8-23) mg/dL Creatinine 1.12 (0.70-1.30) mg/dL Est GFR ( Amer) > 60 (> 60) Est GFR (Non-Af Amer) > 60 (> 60) BUN/Creatinine Ratio 15 (6-26) Glucose 102 (70-105) mg/dL Calculated Osmolality 288 (280-300) Calcium 9.2 (8.6-10.3) mg/dL Troponin I < 0.03 (< 0.04) ng/mL B-Natriuretic Peptide (Less than 100) pg/mL - Radiology Data Radiology results reviewed: Yes I reviewed the patient's radiology results. - EKG Data EKG attestation: Yes I reviewed and interpreted this EKG. EKG shows normal: sinus rhythm Rate: normal Rhythm: NSR, other (EKG tracing said atrial flutter, however this is interference from the EKG which has a lot of that. Patient does have P waves and does not appear to have atrial flutter. His EKG is consistent with prior EKG.) When compared to previous EKG there are: no significant changes Interpretation: no acute changes Heart Score - Score History: Moderately Suspicious EKG: Normal Age: Greater than 65 Risk Factors: Equal/Greater than 3 risk factor or history of atherosclerotic disease Troponin: Less than normal limit HEART Score Total: 5
[2017-12-14 20:04] LABS: Basophils % 0.4 %; Eosinophils # 0.3 K/mcL (0.0-0.6); Eosinophils % 4.3 %; Hematocrit 43.6 % (37.5-50.1); Hemoglobin 14.7 g/dL (12.9-16.9); Immature Granulocytes % 0.3 % (0-4); Lymphocytes # 1.4 K/mcL (0.6-4.6); Lymphocytes % 20.8 %; Mean Corpuscular HGB Conc 33.7 g/dL (31.6-35.5); Mean Corpuscular Hemoglobin 30.9 pg (28.0-33.3); Mean Corpuscular Volume 91.8 fL (83.0-100.0); Mean Platelet Volume 10.2 fL (9.4-12.4); Monocytes # 0.6 K/mcL (0.0-1.3); Monocytes % 9.2 %; Neutrophils # 4.5 K/mcL (1.6-8.9); Platelet Count 145 K/mcL (140-400); Red Blood Count 4.75 M/mcL (4.19-5.50); Red Cell Distribution Width 12.2 % (11.5-14.5)
[2017-12-14 20:09] LABS: INR 0.9; Prothrombin Time 10.2 Seconds (9.4-12.1)
[2017-12-14 20:12] LABS: Activated Partial Thrombo Time 28.8 Seconds (26.0-36.0)
[2017-12-14 20:22] LABS: BUN/Creatinine Ratio 15 (6-26); Blood Urea Nitrogen 17 mg/dL (8-23); Calcium 9.2 mg/dL (8.6-10.3); Carbon Dioxide 28 mEq/L (23-29); Chloride 103 mEq/L (98-107); Glucose 102 mg/dL (70-105); Osmolality,Calculated 288 (280-300); Sodium 138 mEq/L (136-145); eGFR For Non-African Americans > 60 (> 60)
[2017-12-14 20:23] LABS: Troponin I < 0.03 ng/mL (< 0.04)
[2017-12-15] MEDS ORDERED: Naloxone 0.4 MG/ML INJ IVP PRN (00:38)
--- NOTE | 2017-12-15 00:50 | Internal Med History&Physical ---
Date of Encounter: 12/14/17 Time of Encounter: 23:05 Internal Medicine - H&P: HPI Chief complaint: chest pain Admitted From: Emergency Dept Plans for Post Hospital Care: Home History of present illness: Mr. Vail is a 72 year old male who presents to the ER tonight with complaints of chest pain while exerting himself outside doing some yard work. He developed pressure-type sensation in his chest associated with some shortness of breath and diaphoresis. Symptoms have been off and on for the last few days but the worst episodes were today. He therefore came to ER for evaluation. Prior to his arrival in the ER, he took his evening dose of metoprolol and noted his blood pressure was in excess of 190 systolic prior to arrival. By time he arrived in the ER, his chest pain had resolved. Nonetheless, given his known coronary artery disease and his hypertension, he was admitted to hospitalist service. Of note, his blood pressure in ER was initially 213/122. It then dropped down to 170s/80s without any further intervention as he had just taken his metoprolol prior to arrival. Upon my assessment of the patient, he is chest pain-free and back to baseline. He has no shortness of breath, no diaphoresis, no nausea, and no vomiting. He confirms above history. He was doing well until about 3 days ago when he started having intermittent chest pain associated with heavy exertion outside. He did have a left heart catheter physician in July of this year, which was abnormal. There was no intervention done at that time. However, it was noted by cardiology that if he has recurrent chest pain, they could consider doing intervention at a later date. Patient denies any fevers, cough, congestion, vomiting, or diarrhea. He feels back to baseline and normal now. Past Med Surg Social Fam HX - Past Medical History Attestation: Yes The following information was validated with the patient. Source: patient, old records reviewed Medical history: aortic aneurysm, hypertension, migraine, myocardial infarction , thyroid disease Additional medical history: [place] 2008 with stent Psychiatric history: no psych history - Past Surgical History Surgical History: angioplasty/stent, cataract, herniorrhaphy, other Additional surgical history: cysts removed from right kidney - Social History Smoking Status: Never smoker Smokeless Tobacco Status: No Alcohol use: none Drug use: none Current living situation: Home, With Family Activity Level: Independent ambulation Recent Out of Country Travel Within the Last 8 Weeks: No - Family History Son Living Status: Mother Living Status: Sister Living Status: Internal Medicine - H&P: Meds Aspirin Enteric Coated [Aspirin EC] 81 mg PO QPM 01/01/15 [History] Metoprolol Succinate 100 mg PO QPM 03/09/16 [History] hydroCHLOROthiazide [Hydrochlorothiazide] 25 mg PO DAILY PRN 12/27/16 [History] Lisinopril [Zestril] 40 mg PO QAM 07/15/17 [History] Doxazosin 8 mg PO DAILY 12/14/17 [History] 3 Allergy/AdvReac Type Severity Reaction Status Date / Time losartan Allergy See Verified 10/03/17 13:27 Comments amlodipine [From Norvasc] AdvReac Palpitation Verified 10/03/17 13:27 s [id number] Reductase AdvReac Muscle Pain Verified 10/03/17 13:27 Inhibitor [Statins] most pain medication AdvReac Dizziness Uncoded 06/14/17 15:15 water pills AdvReac See Uncoded 06/14/17 15:15 Comments - Constitutional Constitutional: no chills, no fever(s), no night sweats - EENT Eyes: no blurry vision, no change in vision Ears: no ear pain, no tinnitus Nose, mouth and throat: no nasal congestion, no nasal discharge, no sore throat - Cardiovascular Cardiovascular ROS IM: chest pain, diaphoresis, dyspnea, dyspnea on exertion, no edema, no lightheadedness, no orthopnea, no palpitations, no syncope - Respiratory Respiratory: no cough, no hemoptysis, no chest congestion, no excessive phlegm production, no change in phlegm color - Gastrointestinal Gastrointestinal: no abdominal pain, no diarrhea, no hematemesis, no hematochezia, no melena, no nausea, no vomiting - Genitourinary Genitourinary ROS male: no dysuria, no flank pain, no hematuria - Musculoskeletal Musculoskeletal ROS IM: no arthralgias, no back pain - Integumentary Integumentary IM: no rash, no jaundice - Neurological Neurological ROS: no dizziness, no focal weakness, no frequent falls, no headache(s) - Psychiatric Psychiatric: no anxiety, no depression - Endocrine Endocrine IM: no polydipsia, no polyuria - Allergic/Immunologic Allergic/Immunologic: no GI upset with certain foods - Constitutional Vitals: Temp Pulse Resp BP Pulse Ox 98.1 F 56 16 152/78 98 12/14/17 21:34 12/15/17 00:06 12/15/17 00:06 12/15/17 00:06 12/15/17 00:06 General appearance: Present: cooperative, A&O X 3, pleasant, no acute distress, answers questions appropriately Exam: see below - Head Head exam: Present: atraumatic, normal inspection - Eye Eye exam: Present: EOMI, PERRL. Absent: scleral icterus Pupils: Present: normal accommodation - ENT ENT exam: Present: mucous membranes dry, normal exam, normal oropharynx - Neck Neck exam general surgery: Present: full ROM, supple. Absent: tenderness, nuchal rigidity, thyromegaly - Respiratory Respiratory exam: Present: CTAB. Absent: chest wall tenderness, rales, respiratory distress, rhonchi, wheezes - Cardiovascular Cardiovascular exam: Present: RRR, +S1, +S2. Absent: diastolic murmur, systolic murmur - GI/Abdominal GI/Abdominal exam: Present: normal bowel sounds, soft. Absent: guarding, hepatomegaly, mass, rebound, splenomegaly, tenderness - Extremities Exam Extremities exam: Present: full ROM, normal capillary refill, warm, radial pulses palpable and symmetrical. Absent: calf tenderness, pedal edema, tenderness - Back Exam Back exam: Absent: CVA tenderness (L), CVA tenderness (R) - Neurological Exam Neurological exam: Present: alert, CN II-XII intact, oriented X3, no focal deficits - Psychiatric Psychiatric exam: Present: normal affect, normal mood - Skin Skin exam: Present: dry, warm. Absent: rash Internal Med - H&P Results - Labs CBC & Chem 7: 12/14/17 19:35 12/14/17 19:35 - EKG Data -: EKG Interpreted by Myself - EKG Data Prior EKG available for review: yes When compared to previous EKG: there is no significant change EKG comments: 12/15/17 00:53 NSR; no acute ST changes - Diagnostic Studies Chest x-ray Status: image reviewed by me (negative) - Assessment and plan (1) Chest pain Current Visit: Yes Status: Acute Assessment and plan: 1. History suggestive of angina. 2. Will cycle troponins and EKG's. 3. Consult cardiology given recent abnormal LHC and possible need for intervention. Qualifiers: Chest pain type: chest pain due to myocardial ischemia Ischemic chest pain type: stable angina pectoris Qualified Code(s): I20.8 - Other forms of angina pectoris (2) Hypertensive urgency Current Visit: Yes Status: Acute Assessment and plan: 1. Continue home meds as appropriate. 2. Monitor BP and will order Hydralazine IV PRN for SBP > 160. 3. Chest pain did correlate to uncontrolled BP. Thus, BP control should be optimized. (3) DVT prophylaxis Current Visit: Yes Status: Acute Assessment and plan: 1. Heparin SQ.
[2017-12-15 01:51] LABS: Basophils % 0.4 %; Eosinophils # 0.4 K/mcL (0.0-0.6); Eosinophils % 4.7 %; Hematocrit 41.6 % (37.5-50.1); Immature Granulocytes % 0.2 % (0-4); Lymphocytes # 1.8 K/mcL (0.6-4.6); Lymphocytes % 21.7 %; Mean Corpuscular HGB Conc 33.7 g/dL (31.6-35.5); Mean Corpuscular Hemoglobin 30.8 pg (28.0-33.3); Mean Corpuscular Volume 91.6 fL (83.0-100.0); Mean Platelet Volume 10.6 fL (9.4-12.4); Monocytes # 0.7 K/mcL (0.0-1.3); Monocytes % 8.4 %; Neutrophils # 5.4 K/mcL (1.6-8.9); Platelet Count 148 K/mcL (140-400); Red Blood Count 4.54 M/mcL (4.19-5.50); Red Cell Distribution Width 12.3 % (11.5-14.5); Segmented Neutrophils % 64.6 %
[2017-12-15 02:11] LABS: INR 0.9; Prothrombin Time 10.1 Seconds (9.4-12.1)
[2017-12-15 02:13] LABS: Activated Partial Thrombo Time 27.8 Seconds (26.0-36.0); Alanine Aminotransferase 12 Units/L (7-52); Albumin 3.7 g/dL (3.5-5.7); Albumin/Globulin Ratio 1.5 (1.1-2.2); Alkaline Phosphatase 43 Units/L (34-104); Aspartate Amino Transferase 11 Units/L (13-39); Bilirubin,Total 0.7 mg/dL (0.3-1.0); Calcium 8.8 mg/dL (8.6-10.3); Carbon Dioxide 28 mEq/L (23-29); Chloride 104 mEq/L (98-107); Chol/HDL Ratio 6.2 (0-4.9); Cholesterol 205 mg/dL (< 200); Globulin 2.4 g/dL (2.4-3.5); Glucose 100 mg/dL (70-105); HDL Cholesterol 33 mg/dL (40-59); LDL Cholesterol,Calculated 149 mg/dL (0-99); Potassium 3.8 mEq/L (3.5-5.1); Sodium 139 mEq/L (136-145); Total Protein 6.1 g/dL (6.4-8.9); Triglycerides 116 mg/dL (< 150); eGFR For Non-African Americans > 60 (> 60)
[2017-12-15 02:45] LABS: BUN/Creatinine Ratio 16 (6-26); Blood Urea Nitrogen 16 mg/dL (8-23); Osmolality,Calculated 289 (280-300)
[2017-12-15] MEDS ORDERED: *HR* Heparin 5,000 UNIT/ML VIAL SQ SCH (06:00)
[2017-12-15] MEDS ORDERED: Lisinopril 20 MG TABLET PO SCH (09:00)
[2017-12-15 12:17] VITALS: BP 135/77
--- NOTE | 2017-12-15 12:27 | Cardiology Consult Note ---
Date of Encounter: 12/15/17 Time of Encounter: 12:18 Assessment and Plan (1) Chest pain Current Visit: Yes Status: Acute Chest pain seems to be secondary to uncontrolled HTN. Would recommend more aggressive BP control. He will restart some meds and change his medication schedule. Qualifiers: Chest pain type: chest pain due to myocardial ischemia Ischemic chest pain type: stable angina pectoris Qualified Code(s): I20.8 - Other forms of angina pectoris (2) HTN (hypertension) Current Visit: No Status: Chronic Qualifiers: Hypertension type: essential hypertension Qualified Code(s): I10 - Essential (primary) hypertension Discussion w patient/family: The assessment and plan as outlined above was discussed with the patient and/or family members who expressed understanding and agreement. All questions were answered. Thank you for involving us in the care of your patient. Please call with any questions. History of Present Illness Consult date: 12/15/17 Requesting physician: Rafael Bazzi Consult reason: Chest pain Chief complaint: Chest pain History of present illness: Mr. Vail is a 72 year old male with known CAD presents with chest pain and HTN urgency. He noted somewhat atypical chest pain that seemed to correspond to elevated BP. He had been holding some of his BP meds out of convenience. His BP has been traditonally very difficult to control and he had allergies/ intolerances to many medicines. Previous heart cath showed 2 vessel disease with medical mgmt. recommended. It was noted that a POBA could be considered. Past Med Surg Social Fam HX - Past Medical History Medical history: aortic aneurysm, hypertension, migraine, myocardial infarction , thyroid disease Additional medical history: [place] 2008 with stent Psychiatric history: no psych history - Past Surgical History Surgical History: angioplasty/stent, cataract, herniorrhaphy, other Additional surgical history: cysts removed from right kidney - Social History Smoking Status: Never smoker Smokeless Tobacco Status: No Alcohol use: none Drug use: none - Family History Son Living Status: Mother Living Status: Sister Living Status: Medications and Allergies Aspirin Enteric Coated [Aspirin EC] 81 mg PO QPM 01/01/15 [History] Metoprolol Succinate 100 mg PO QPM 03/09/16 [History] hydroCHLOROthiazide [Hydrochlorothiazide] 25 mg PO DAILY PRN 12/27/16 [History] Lisinopril [Zestril] 40 mg PO QAM 07/15/17 [History] Doxazosin 8 mg PO DAILY 12/14/17 [History] 3 Allergy/AdvReac Type Severity Reaction Status Date / Time losartan Allergy See Verified 10/03/17 13:27 Comments amlodipine [From [facility]] AdvReac Palpitation Verified 10/03/17 13:27 s [id number]-[id number]-[id number] Reductase AdvReac Muscle Pain Verified 10/03/17 13:27 Inhibitor [Statins] most pain medication AdvReac Dizziness Uncoded 06/14/17 15:15 water pills AdvReac See Uncoded 06/14/17 15:15 Comments All Systems Review: The remainder of the systems were reviewed and are negative Physical Examination Vital Signs, Last 4 Hours Temp Pulse Resp BP Pulse Ox 12/15/17 12:12 97.9 F 66 16 135/77 91 General: Conversant, No Apparent Distress HEENT: Atraumatic, Normocephaly, Mucus Membranes Moist Neck: No JVD, Normal carotid pulses Cardiac: Reg Rate and Rhythm, Normal S1 and S2, No Murmur Lungs: Normal Breath Sounds, No Wheeze, Rales, Rhonchi Neuro: Alert and responsive, No focal deficits noted Abdomen: Soft, Non-Tender Skin: No rashes noted on visualized skin Musculoskeletal: No Chest Wall Tenderness Results 12/15/17 01:12 12/15/17 01:12 Lab Results 12/15/17 12/15/17 12/15/17 01:12 01:12 01:12 WBC 8.4 Hgb 14.0 Hct 41.6 Plt Count 148 INR 0.9 APTT 27.8 Sodium Potassium Chloride Carbon Dioxide BUN Creatinine Glucose Calcium Magnesium Total Bilirubin AST ALT Alkaline Phosphatase Troponin I < 0.03 12/15/17 12/15/17 01:12 08:09 WBC Hgb Hct Plt Count INR APTT Sodium 139 Potassium 3.8 Chloride 104 Carbon Dioxide 28 BUN 16 Creatinine 0.97 Glucose 100 Calcium 8.8 Magnesium 2.0 Total Bilirubin 0.7 AST 11 L ALT 12 Alkaline Phosphatase 43 Troponin I < 0.03 Consult Discharge Plan - Plan Referrals: Mack Briones MD [Primary Care Provider] -
--- NOTE | 2017-12-15 13:50 | Discharge Summary ---
- NOTES TO OUTPATIENT PROVIDER Notes to Outpatient Provider: Patient hospitalized with hypertensive urgency and chest pain. Symptoms resolved as his blood pressure was better controlled. Given his prior abnormal left heart catheterization, cardiology was consulted. They evaluated the patient and recommended no indication for left heart catheterization at this time. Patient is chest pain-free. His blood pressure is better controlled. He will be discharged home today with adjustment of his antihypertensive regimen. Orders not resulted at time of discharge: Pending orders 12/15/17 06:00 ECG 12 lead ECG [ECG] AM 0600 Date of Encounter: 12/15/17 Time of Encounter: 13:47 - Discharge Diagnosis (1) Hypertensive urgency Priority: Primary Status: Acute (2) Chest pain Priority: Secondary Status: Resolved Qualifiers: Chest pain type: chest pain due to myocardial ischemia Ischemic chest pain type: stable angina pectoris Qualified Code(s): I20.8 - Other forms of angina pectoris (3) DVT prophylaxis Priority: Secondary Status: Acute Hospital course: Mr. Vail is a 72 year old male Patient with history of hypertension, [place], aortic aneurysm was hospitalized with hypertensive urgency and chest pain. Symptoms resolved as his blood pressure was better controlled. His prior heart catheterization done in July of this year showed two-vessel disease. Medical management was recommended at this time with possible of POBA if patient continued. Given his prior abnormal left heart catheterization, cardiology was consulted. They evaluated the patient and recommended no indication for left heart catheterization at this time. Patient is chest pain-free. His blood pressure is better controlled. He will be discharged home today with adjustment of his antihypertensive regimen. Discharge discussed with: patient, nurse - Time Spent with Patient Total time spent providing and/or coordinating discharge services: Greater than 30 minutes (32 min) - Discharge Medications Home Medications: Aspirin Enteric Coated [Aspirin EC] 81 mg PO QPM 01/01/15 [History] Metoprolol Succinate 100 mg PO QPM 03/09/16 [History] hydroCHLOROthiazide [Hydrochlorothiazide] 25 mg PO DAILY PRN 12/27/16 [History] Lisinopril [Zestril] 40 mg PO QAM 07/15/17 [History] Doxazosin 8 mg PO DAILY 12/14/17 [History] Allergies/Adverse Reactions: 3 Allergy/AdvReac Type Severity Reaction Status Date / Time losartan Allergy See Verified 10/03/17 13:27 Comments amlodipine [From Norvas] AdvReac Palpitation Verified 10/03/17 13:27 s Rhtsvlg-Ryn-Rrs Reductase AdvReac Muscle Pain Verified 10/03/17 13:27 Inhibitor [Statins] most pain medication AdvReac Dizziness Uncoded 06/14/17 15:15 water pills AdvReac See Uncoded 06/14/17 15:15 Comments Date of admission: 12/14/17 20:49 Primary care physician: Mack Briones MD Consults: 12/15/17 00:40 Consult to Physician [CONS] Routine Consulting Provider: Kojo Carlos Reason for Consult: chest pain; abnormal C 07/24. Call Completed: No Discharging clinician: Vani Burnham Anticipated date of discharge: 12/15/17 - Constitutional Vitals: Temp Pulse Resp BP Pulse Ox 97.9 F 66 16 135/77 91 12/15/17 12:12 12/15/17 12:12 12/15/17 12:12 12/15/17 12:12 12/15/17 12:12 General appearance: Present: cooperative, A&O X 3, pleasant, no acute distress, answers questions appropriately Exam: . - Respiratory Respiratory exam: Present: CTAB. Absent: accessory muscle use, rales, rhonchi, wheezes - Cardiovascular Cardiovascular exam: Present: RRR, +S1, +S2. Absent: diastolic murmur, gallop, rubs, systolic murmur - Patient Status Disposition: Home, Self-Care Condition: Good Functional capacity at discharge: independent ambulation Overall status at discharge: patient is progressing back to baseline - Discharge Instructions Instructions: Chronic Hypertension (DC), Chest Pain (DC) Follow Up With: Mack Briones MD [Primary Care Provider] - (In 1-2 weeks) - Diet and Activity Activity: increase activity as tolerated Diet: low fat, low cholesterol, low salt diet
[2017-12-15] MEDS ORDERED: Aspirin Enteric Coated 81 MG Tablet PO SCH (18:00)
[2017-12-15] MEDS ORDERED: Metoprolol XL (24 HR) Succ 50 MG TAB.ER.24H PO SCH (18:00)
--- NOTE | 2017-12-19 14:34 | Electrocardiograph Report ---
[place] [id number] Test Date: 2017-12-14 Pat Name: Schuyler Vail Department: [id number] Room: 3B54 Gender: M [employer]er: : [id number] Requested By: Pilo Villareal Order Number: [id number] Reading MD: Bob Doyle Measurements Intervals [place] Rate: 84 P: IA: QRS: -38 QRSD: 97 T: 47 QT: 383 QTc: 453 Interpretive Statements Probably sinus rhythm Left axis deviation Low voltage, precordial leads Electronically Signed On 12-19-2017 14:32:06 EDT by Bob Doyle
== END 2017-12-15 14:17 | disposition home or self-care (01) ==
LOC: 3BNU 18:50 → EMEROOARM 18:50 → SUATTDRO 20:49 → 3BNU 21:09
PROVIDERS: ADMIT Pediatrics; ATTEND Internal Medicine